=== PATIENT | female | born 1975 | race Hispanic/Latino ===

== ENCOUNTER 2021-02-25 13:58 | Emergency (ER) | payer OTHER ==
[2021-02-25] MEDS ORDERED: LIDOCAINE-MPF (1%) 10 MG/1 ML VIAL 5 ML INFILTRATI ONE (14:21)
[2021-02-25] MEDS: hydrOXYzine HCL 25 MG TAB PO ONE (14:47)
--- NOTE | 2021-02-25 15:29 | Emergency Department Report ---
- General Chief complaint: Skin/Abscess/Foreign Body Stated complaint: ABSCESS Time Seen by Provider: 02/25/21 14:10 Source: patient Mode of arrival: Ambulatory Limitations: No Limitations - History of Present Illness Initial comments: Patient is a 45-year-old female presents emergency room with complaints of a abscess to the right axilla that exacerbated 2 weeks ago. She states that she has had a knot in this area for approximately 10 years. He states over the last 2 weeks it began to swell and become red. He states that it has become painful. Patient states that she has been on Augmentin but does not appear to be improving. She denies any fever, drainage, chills, vomiting. Past medical history of COPD, anxiety/panic disorder, hypertension. She has an allergy to te tracyclines, erythromycin, IV contrast dye. - Related Data Previous Rx's Medication Instructions Recorded Last Taken Type Clindamycin [Clindamycin CAP] 300 mg PO TID 7 Days #21 capsule 02/25/21 Unknown Rx Naproxen 375 mg PO BID PRN #14 tablet 02/25/21 Unknown Rx Allergies Allergy/AdvReac Type Severity Reaction Status Date / Time erythromycin base Allergy Unknown Verified 02/25/21 14:01 Iodinated Contrast Media Allergy Unknown Verified 02/25/21 14:01 tetracycline Allergy Unknown Verified 02/25/21 14:01 Abscess Boil HPI - HPI Chief Complaint: Skin/Abscess/Foreign Body Stated Complaint: ABSCESS Time Seen by Provider: 02/25/21 14:10 Home Medications: Previous Rx's Medication Instructions Recorded Last Taken Type Clindamycin [Clindamycin CAP] 300 mg PO TID 7 Days #21 capsule 02/25/21 Unknown Rx Naproxen 375 mg PO BID PRN #14 tablet 02/25/21 Unknown Rx Allergies/Adverse Reactions: Allergies Allergy/AdvReac Type Severity Reaction Status Date / Time erythromycin base Allergy Unknown Verified 02/25/21 14:01 Iodinated Contrast Media Allergy Unknown Verified 02/25/21 14:01 tetracycline Allergy Unknown Verified 02/25/21 14:01 ED Review of Systems ROS: Stated complaint: ABSCESS Other details as noted in HPI Comment: All other systems reviewed and negative ED Past Medical Hx - Past Medical History Previous Medical History?: Yes Hx Hypertension: Yes Hx Psychiatric Treatment: Yes (panic disorder) Hx COPD: Yes - Surgical History Past Surgical History?: No - Medications Home Medications: Home Medications Medication Instructions Recorded Confirmed Last Taken Type Clindamycin [Clindamycin CAP] 300 mg PO TID 7 Days #21 capsule 02/25/21 Unknown Rx Naproxen 375 mg PO BID PRN #14 tablet 02/25/21 Unknown Rx ED Physical Exam - General Limitations: No Limitations General appearance: alert, in no apparent distress - Head Head exam: Present: atraumatic, normocephalic - Eye Eye exam: Present: normal appearance - ENT ENT exam: Present: mucous membranes moist - Neurological Exam Neurological exam: Present: alert, oriented X3 - Psychiatric Psychiatric exam: Present: normal affect, normal mood - Skin Skin exam: Present: warm, dry, other (2 cm area of induration and central fluctuance present to the right axilla, no drainage, no opening, no necrosis, no significant surrounding erythema ) ED Course Vital Signs 02/25/21 02/25/21 14:02 16:41 Temperature 99.3 F 98.4 F Pulse Rate 96 H 87 Respiratory 16 16 Rate Blood Pressure 116/71 Blood Pressure 109/64 [Left] O2 Sat by Pulse 96 97 Oximetry - I & D Right Arm Type of Procedure: Simple Site: right axilla Blade Size: 11 I & D Procedure: betadine prep, sterile drapes applied, sterile dressing applied Progress: Verbal consent obtained by patient Skin prepped with Betadine, sterile drapes applied, 2 cc of 1% lidocaine without epinephrine used anesthetic, 11 blade used to make a 1 cm incision, purulent and sebaceous-like material expressed, irrigated with saline, patient tolerated well, no complications, bleeding controlled, sterile dressing applied ED Medical Decision Making - Medical Decision Making Patient is a 45-year-old female presents emergency room with complaints of a abscess to the right axilla that exacerbated 2 weeks ago. She states that she has had a knot in this area for approximately 10 years. He states over the last 2 weeks it began to swell and become red. He states that it has become painful. Patient states that she has been on Augmentin but does not appear to be improving. She denies any fever, drainage, chills, vomiting. Past medical history of COPD, anxiety/panic disorder, hypertension. She has an allergy to tetracyclines, erythromycin, IV contrast dye. Vitals are normal. On exam:2 cm area of induration and central fluctuance present to the right axilla, no drainage, no opening, no necrosis, no significant surrounding erythema. I&D performed per procedure note without any complications. Patient given prescription for medication. Advised patient Please take medication as prescr ibed. Please do warm compresses 2-3 times a day. Please keep area clean and dry. Please change the dressing twice a day. May wash with antibacterial soap and water and pat dry. No hot tub or pool. Follow-up with a advertising inserter. Follow-up with your primary care doctor. Return to emergency room for any new or worsening symptoms. Critical care attestation.: If time is entered above; I have spent that time in minutes in the direct care of this critically ill patient, excluding procedure time. ED Disposition Clinical Impression: Abscess of right axilla Disposition: HOME / SELF CARE / HOMELESS Is pt being admited?: No Does the pt Need Aspirin: No Condition: Stable Instructions: Incision and Drainage Additional Instructions: Please take medication as prescribed. Please do warm compresses 2-3 times a day. Please keep area clean and dry. Please change the dressing twice a day. May wash with antibacterial soap and water and pat dry. No hot tub or pool. Fo llow-up with a advertising inserter. Follow-up with your primary care doctor. Return to emergency room for any new or worsening symptoms. [facility] Address: [address] [place] [id number] [address] Mata Isaac Address: [address] [place] [address] [id number], [place] [address] Prescriptions: Clindamycin [Clindamycin CAP] 300 mg PO TID 7 Days #21 capsule Naproxen 375 mg PO BID PRN #14 tablet PRN Reason: pain Referrals: [facility] [Provider Group] - 3-5 Days Time of Disposition: 15:30 Print Language: BELARUSIAN
[2021-02-25 16:42] VITALS: BP 116/71
== END 2021-02-25 16:42 | disposition home or self-care (01) ==
LOC: ED 13:58
DX: L02.411 Cutaneous abscess of right axilla (principal); I10 Essential (primary) hypertension; Z88.1 Allergy status to other antibiotic agents; Z91.041 Radiographic dye allergy status
CPT/HCPCS: 99282

== ENCOUNTER 2021-02-28 00:05 | Observation (INO) | payer OTHER ==
[2021-02-28] MEDS ORDERED: ONDANSETRON 4 MG/2 ML INJ IV ONE (01:00)
[2021-02-28] MEDS ORDERED: SODIUM CHLORIDE 0.9% 1000 ML 1,000 ML IV ONE (01:15)
[2021-02-28] MEDS ORDERED: levETIRAcetam 1000 MG/NS 0.75% 1,000 MG/100 ML BAG IV ONE (01:15)
--- NOTE | 2021-02-28 01:17 | Emergency Department Report ---
ED Seizure HPI - General Chief Complaint: Seizure Stated Complaint: SEIZURE Time Seen by Provider: 02/28/21 01:13 Source: patient, EMS Mode of arrival: Stretcher Limitations: No Limitations - History of Present Illness Initial Comments: Patient is a 45-year-old female that presents emergency room for new onset seizure. Patient states for the last 3 to 4 days she has been feeling lightheaded and dizzy and today she was walking around and became nauseous and more lightheaded. The next thing she knows she woke up inside of an ambulance. She was told by EMS that she had a seizure. Patient does not remember having a seizure. Patient seizure was witnessed by the staff of [facility]. [facility] Patient states she has been clean for 3 weeks. Patient denies any pain. Patient states she is never had a seizure. Patient states she is never had alcohol withdrawal seizure. Patient denies recent travel. Patient denies recent international travel. Patient denies exposure to the novel coronavirus. Patient denies sick contacts. Patient denies fever and chills. Patient denies cough. Patient denies diarrhea. Patient denies coming in contact with anybody with symptoms of the novel coronavirus. MD Complaint: seizure -: Sudden Description of Episode: loss of consciousness, tonic-clonic movement, bladder incontinence -: second(s) Witnessed:: Yes Trauma: No Seizure History: none Place: other Possible Precipitating Event: none Associated Symptoms: malaise, weakness Treatments Prior to Arrival: none - Related Data Previous Rx's Medication Instructions Recorded Last Taken Type Clindamycin [Clindamycin CAP] 300 mg PO TID 7 Days #21 capsule 02/25/21 Unknown Rx Naproxen 375 mg PO BID PRN #14 tablet 02/25/21 Unknown Rx Allergies Allergy/AdvReac Type Severity Reaction Status Date / Time erythromycin base Allergy Unknown Verified 02/25/21 14:01 Iodinated Contrast Media Allergy Unknown Verified 02/25/21 14:01 tetracycline Allergy Unknown Verified 02/25/21 14:01 ED Review of Systems ROS: Stated complaint: SEIZURE Other details as noted in HPI Constitutional: malaise. denies: chills, fever Eyes: denies: eye pain, eye discharge, vision change ENT: denies: ear pain, throat pain Respiratory: denies: cough, shortness of breath, wheezing Cardiovascular: denies: chest pain, palpitations Endocrine: no symptoms reported Gastrointestinal: denies: abdominal pain, nausea, diarrhea Genitourinary: denies: urgency, dysuria, discharge Musculoskeletal: denies: back pain, joint swelling, arthralgia Skin: denies: rash, lesions Neurological: as per HPI, weakness. denies: headache, paresthesias Psychiatric: denies: anxiety, depression Hematological/Lymphatic: denies: easy bleeding, easy bruising ED Past Medical Hx - Past Medical History Previous Medical History?: Yes Hx Hypertension: Yes Hx Seizures: No Hx Psychiatric Treatment: Yes (panic disorder) Hx COPD: Yes - Surgical History Past Surgical History?: No - Family History Family history: no significant - Social History Smoking Status: Current Every Day Smoker Substance Use Type: None - Medications Home Medications: Home Medications Medication Instructions Recorded Confirmed Last Taken Type Clindamycin [Clindamycin CAP] 300 mg PO TID 7 Days #21 capsule 02/25/21 Unknown Rx Naproxen 375 mg PO BID PRN #14 tablet 02/25/21 Unknown Rx ED Physical Exam - General Limitations: No Limitations General appearance: alert, in no apparent distress - Head Head exam: Present: atraumatic, normocephalic - Eye Eye exam: Present: normal appearance, PERRL Pupils: Present: normal accommodation - ENT ENT exam: Present: mucous membranes dry - Neck Neck exam: Present: normal inspection - Respiratory Respiratory exam: Present: normal lung sounds bilaterally. Absent: respiratory distress, wheezes, rales - Cardiovascular Cardiovascular Exam: Present: regular rate, normal rhythm. Absent: systolic murmur, diastolic murmur, rubs, gallop - GI/Abdominal GI/Abdominal exam: Present: soft, normal bowel sounds - Extremities Exam Extremities exam: Present: normal inspection - Back Exam Back exam: Present: normal inspection - Neurological Exam Neurological exam: Present: alert, oriented X3 - Psychiatric Psychiatric exam: Present: normal affect, normal mood - Skin Skin exam: Present: warm, dry, intact, normal color. Absent: rash ED Course Vital Signs 02/28/21 02/28/21 02/28/21 00:20 01:02 01:15 Temperature 98.8 F Pulse Rate 124 H 106 H 101 H Respiratory 20 14 15 Rate Blood Pressure 139/81 Blood Pressure 143/74 [Left] O2 Sat by Pulse 94 100 99 Oximetry 02/28/21 02/28/21 01:18 01:31 Temperature Pulse Rate 104 H 101 H Respiratory 122 H 12 Rate Blood Pressure 102/71 Blood Pressure 102/71 [Left] O2 Sat by Pulse 99 100 Oximetry - Reevaluation(s) Reevaluation #1: I discussed all results with patient. I discussed plan of care with patient. Patient agrees with plan of care and admission. Patient to be admitted to the hospitalist service. 02/28/21 03:26 - Consultations Consultation #1: Hospitalist consulted for admission. Hospitalist to admit patient. 02/28/21 03:26 ED Medical Decision Making - Lab Data Result diagrams: 02/28/21 01:27 02/28/21 01:27 - Radiology Data Radiology results: report reviewed CT HEAD WITHOUT CONTRAST INDICATION / CLINICAL INFORMATION: Seizure. TECHNIQUE: All CT scans at this location are performed using CT dose reduction for ALARA by means of automated exposure control. COMPARISON: None available. FINDINGS: HEMORRHAGE: None. EXTRA-AXIAL SPACES: Normal in size and morphology for the patient's age. VENTRICULAR SYSTEM: Normal in size and morphology for the patient's age. CEREBRAL PARENCHYMA: No significant abnormality. No acute territorial infarct. MIDLINE SHIFT / HERNIATION: None. CEREBELLUM / BRAINSTEM: No significant abnormality. ORBITS: Normal as visualized SOFT TISSUES: No significant abnormality. SKULL: No significant abnormality. PARANASAL SINUSES / MASTOID AIR CELLS: Normal as visualized ADDITIONAL FINDINGS: None. IMPRESSION: 1. No acute intracranial abnormality. - Medical Decision Making Patient is a 45-year-old female that presents emergency room with new onset seizure. Patient was at a local psychiatry facility for alcohol rehab. Patient has not had alcohol for 3 weeks. Patient had a 34 few days and went into a seizure. The seizure was witnessed by the facility staff. Patient was brought in by EMS. Patient denies any further seizure activity while in the ER. Patient after evaluation was given fluids, Zofran and Keppra. Patient had labs done which were essentially unremarkable. Patient head CT which was negative for acute finding. Patient admitted to the hospital service for further ev aluation treatment and work-up for new onset seizures. Critical care time documented due to the multiple reassessments, prolonged time at the bedside, interpretation of diagnostics and labs. - Differential Diagnosis New onset seizure, dizziness and lightheadedness, seizure activity Critical Care Time: Yes Critical care time in (mins) excluding proc time.: 35 Critical care attestation.: If time is entered above; I have spent that time in minutes in the direct care of this critically ill patient, excluding procedure time. Critical Care Time: 35 minutes ED Disposition Clinical Impression: Dizziness, New onset seizure, Seizure-like activity Disposition: ADMITTED INPATIENT Is pt being admited?: Yes Does the pt Need Aspirin: No Condition: Critical Time of Disposition: 03:26
[2021-02-28] MEDS ORDERED: ONDANSETRON 4 MG/2 ML INJ ONE (01:26)
[2021-02-28 02:01] LABS: Hematocrit 35.5 % (30.3-42.9); Hemoglobin 11.3 gm/dl (10.1-14.3); Mean Corpuscular HGB Conc 32 % (30-34); Mean Corpuscular Volume 88 fl (79-97); Platelet Count 397 K/mm3 (140-440); Red Blood Count 4.02 M/mm3 (3.65-5.03)
[2021-02-28 02:06] LABS: Alanine Aminotransferase 19 units/L (7-56); Albumin 4.3 g/dL (3.9-5); BUN/Creatinine Ratio 19; Blood Urea Nitrogen 17 mg/dL (7-17); Calcium 9.3 mg/dL (8.4-10.2); Hemolysis Index 14
[2021-02-28 02:52] LABS: RBC Morphology Normal; Total Cells Counted 100
--- NOTE | 2021-02-28 03:17 | Cat Scan Report ---
CT HEAD WITHOUT CONTRAST INDICATION / CLINICAL INFORMATION: Seizure. TECHNIQUE: All CT scans at this location are performed using CT dose reduction for ALARA by means of automated exposure control. COMPARISON: None available. FINDINGS: HEMORRHAGE: None. EXTRA-AXIAL SPACES: Normal in size and morphology for the patient's age. VENTRICULAR SYSTEM: Normal in size and morphology for the patient's age. CEREBRAL PARENCHYMA: No significant abnormality. No acute territorial infarct. MIDLINE SHIFT / HERNIATION: None. CEREBELLUM / BRAINSTEM: No significant abnormality. ORBITS: Normal as visualized SOFT TISSUES: No significant abnormality. SKULL: No significant abnormality. PARANASAL SINUSES / MASTOID AIR CELLS: Normal as visualized ADDITIONAL FINDINGS: None. IMPRESSION: 1. No acute intracranial abnormality. Signer Name: Te Chang DO Signed: 02/28/2021 3:13 AM Workstation Name: [id number]
[2021-02-28 04:42] LABS: Amphetamine Screen,Urine Negative; Benzodiazepines Screen,Urine Negative; Cannabinoid Screen,Urine Negative; Cocaine Screen,Urine Negative; Methadone Screen,Urine Negative; Opiate Screen,Urine Negative
[2021-02-28 04:43] LABS: Bilirubin,Urine NEG (Negative); Blood,Urine NEG (Negative); Color,Urine Colorless (Yellow); Protein,Urine <15 mg/dL mg/dL (Negative); RBC,Urine < 1.0 /HPF (0.0-6.0); Urobilinogen,Urine < 2.0 mg/dL (<2.0); WBC,Urine < 1.0 /HPF (0.0-6.0)
[2021-02-28] MEDS ORDERED: ALBUTEROL 2.5 MG/3 ML NEBU IH PRN (06:16)
[2021-02-28] MEDS ORDERED: ONDANSETRON 4 MG/2 ML INJ IV PRN (06:16)
--- NOTE | 2021-02-28 06:23 | History and Physical Report ---
History of Present Illness Date of examination: 02/28/21 Date of admission: 02/28/21 03:26 Chief complaint: Seizure History of present illness: 45-year-old female with past medical history of hypertension, panic disorder, COPD was brought to the emergency room because of new onset seizure. Patient states for the last 3 to 4 days she has been feeling lightheaded and dizzy and today she was walking around and became nauseous and more lightheaded. The next thing she knows she woke up inside of an ambulance. She was told by EMS that she had a seizure. Patient does not remember having a seizure. Patient seizure was witnessed by the staff of [facility]. Patient is currently a patient [facility] for alcohol rehab. Patient states she has been clean for 3 weeks. Patient denies any pain. Patient states she is never had a seizure. Patient states she is never had alcohol withdrawal seizure. Patient head CT which was negative for acute finding. Patient admitted to the hospital service for further evaluation treatment and work-up for new onset seizures. Past History Past Medical History: hypertension, other (Panic disorder, alcohol abuse) Medications and Allergies Allergies Allergy/AdvReac Type Severity Reaction Status Date / Time erythromycin base Allergy Unknown Verified 02/25/21 14:01 Iodinated Contrast Media Allergy Unknown Verified 02/25/21 14:01 tetracycline Allergy Unknown Verified 02/25/21 14:01 Home Medications Medication Instructions Recorded Confirmed Last Taken Type Clindamycin [Clindamycin CAP] 300 mg PO TID 7 Days #21 capsule 02/25/21 Unknown Rx Naproxen 375 mg PO BID PRN #14 tablet 02/25/21 Unknown Rx Active Meds: Active Medications Acetaminophen (Acetaminophen 325 Mg Tab) 650 mg PO Q4H PRN PRN Reason: Pain MILD(1-3)/Fever >100.5/DASILVA Albuterol (Albuterol 2.5 Mg/3 Ml Nebu) 2.5 mg IH Q4HRT PRN PRN Reason: Shortness Of Breath Albuterol/Ipratropium (Ipratropium/Albuterol Sulfate 3 Ml Ampul.Neb) 1 ampul IH Q6HRT ELSA Famotidine (Famotidine 20 Mg Tab) 20 mg PO BID ELSA Hydromorphone HCl (Hydromorphone 1 Mg/1 Ml Inj) 0.5 mg IV Q3H PRN PRN Reason: Pain , Severe (7-10) Dextrose/Sodium Chloride (D5/0.45ns) 1,000 mls @ 100 mls/hr IV DIRECT ELSA Levetiracetam 500 mg/ Dextrose 105 mls @ 400 mls/hr IV Q12HR ELSA Ondansetron HCl (Ondansetron 4 Mg/2 Ml Inj) 4 mg IV Q8H PRN PRN Reason: Nausea And Vomiting Oxycodone/Acetaminophen (Oxycodone /Acetaminophen 5-325mg Tab) 1 tab PO Q6H PRN PRN Reason: Pain, Moderate (4-6) Sodium Chloride (Sodium Chloride 0.9% 10 Ml Flush Syringe) 10 ml IV BID ELSA Sodium Chloride (Sodium Chloride 0.9% 10 Ml Flush Syringe) 10 ml IV PRN PRN PRN Reason: LINE FLUSH Review of Systems All systems: negative Neurological: seizures Exam - Constitutional Vitals: Temp Pulse Resp BP Pulse Ox 98.8 F 99 H 14 107/58 97 02/28/21 00:20 02/28/21 05:31 02/28/21 05:31 02/28/21 05:31 02/28/21 05:31 General appearance: Present: no acute distress, well-nourished - EENT Eyes: Present: PERRL ENT: hearing intact, clear oral mucosa - Neck Neck: Present: supple, normal ROM - Respiratory Respiratory effort: normal Respiratory: bilateral: CTA - Cardiovascular Heart Sounds: Present: S1 & S2. Absent: rub, click - Extremities Extremities: pulses symmetrical, No edema Peripheral Pulses: within normal limits - Abdominal General gastrointestinal: Present: soft, non-tender, non-distended, normal bowel sounds Female genitourinary: Present: normal - Integumentary Integumentary: Present: clear, warm, dry - Musculoskeletal Musculoskeletal: gait normal, strength equal bilaterally - Psychiatric Psychiatric: appropriate mood/affect, intact judgment & insight - Neurologic Neurologic: CNII-XII intact, moves all extremities Results - Labs CBC & Chem 7: 02/28/21 01:27 02/28/21 01:27 Labs: Laboratory Last Values WBC 14.7 K/mm3 (4.5-11.0) H 02/28/21 01:27 RBC 4.02 M/mm3 (3.65-5.03) 02/28/21 01:27 Hgb 11.3 gm/dl (10.1-14.3) 02/28/21 01:27 Hct 35.5 % (30.3-42.9) 02/28/21 01:27 MCV 88 fl (79-97) 02/28/21 01:27 MCH 28 pg (28-32) 02/28/21 01:27 MCHC 32 % (30-34) 02/28/21 01:27 RDW 16.0 % (13.2-15.2) H 02/28/21 01:27 Plt Count 397 K/mm3 (140-440) 02/28/21 01:27 Add Manual Diff Complete 02/28/21 01:27 Total Counted 100 02/28/21 01:27 Seg Neuts % (Manual) 79.0 % (40.0-70.0) H 02/28/21 01:27 Lymphocytes % (Manual) 11.0 % (13.4-35.0) L 02/28/21 01:27 Monocytes % (Manual) 6.0 % (0.0-7.3) 02/28/21 01:27 Eosinophils % (Manual) 3.0 % (0.0-4.3) 02/28/21 01:27 Basophils % (Manual) 1.0 % (0.0-1.8) 02/28/21 01:27 Nucleated RBC % Not Reportable 02/28/21 01:27 Seg Neutrophils # Man 11.6 K/mm3 (1.8-7.7) H 02/28/21 01:27 Band Neutrophils # 0.0 K/mm3 02/28/21 01:27 Lymphocytes # (Manual) 1.6 K/mm3 (1.2-5.4) 02/28/21 01:27 Abs React Lymphs (Man) 0.0 K/mm3 02/28/21 01:27 Monocytes # (Manual) 0.9 K/mm3 (0.0-0.8) H 02/28/21 01:27 Eosinophils # (Manual) 0.4 K/mm3 (0.0-0.4) 02/28/21 01:27 Basophils # (Manual) 0.1 K/mm3 (0.0-0.1) 02/28/21 01:27 Metamyelocytes # 0.0 K/mm3 02/28/21 01:27 Myelocytes # 0.0 K/mm3 02/28/21 01:27 Promyelocytes # 0.0 K/mm3 02/28/21 01:27 Blast Cells # 0.0 K/mm3 02/28/21 01:27 WBC Morphology Not Reportable 02/28/21 01:27 Hypersegmented Neuts Not Reportable 02/28/21 01:27 Hyposegmented Neuts Not Reportable 02/28/21 01:27 Hypogranular Neuts Not Reportable 02/28/21 01:27 Smudge Cells Not Reportable 02/28/21 01:27 Toxic Granulation Not Reportable 02/28/21 01:27 Toxic Vacuolation Not Reportable 02/28/21 01:27 Dohle Bodies Not Reportable 02/28/21 01:27 Pelger-Huet Anomaly Not Reportable 02/28/21 01:27 Jermaine Rods Not Reportable 02/28/21 01:27 Platelet Estimate Not Reportable 02/28/21 01:27 Clumped Platelets Not Reportable 02/28/21 01:27 Plt Clumps, EDTA Not Reportable 02/28/21 01:27 Large Platelets Not Reportable 02/28/21 01:27 Giant Platelets Not Reportable 02/28/21 01:27 Platelet Satelliting Not Reportable 02/28/21 01:27 Plt Morphology Comment Not Reportable 02/28/21 01:27 RBC Morphology Normal 02/28/21 01:27 Dimorphic RBCs Not Reportable 02/28/21 01:27 Polychromasia Not Reportable 02/28/21 01:27 Hypochromasia Not Reportable 02/28/21 01:27 Poikilocytosis Not Reportable 02/28/21 01:27 Anisocytosis Not Reportable 02/28/21 01:27 Microcytosis Not Reportable 02/28/21 01:27 Macrocytosis Not Reportable 02/28/21 01:27 Spherocytes Not Reportable 02/28/21 01:27 Pappenheimer Bodies Not Reportable 02/28/21 01:27 Sickle Cells Not Reportable 02/28/21 01:27 Target Cells Not Reportable 02/28/21 01:27 Tear Drop Cells Not Reportable 02/28/21 01:27 Ovalocytes Not Reportable 02/28/21 01:27 Helmet Cells Not Reportable 02/28/21 01:27 [place] Bodies Not Reportable 02/28/21 01:27 [place] Rings Not Reportable 02/28/21 01:27 [place] Cells Not Reportable 02/28/21 01:27 Bite Cells Not Reportable 02/28/21 01:27 Crenated Cell Not Reportable 02/28/21 01:27 Elliptocytes Not Reportable 02/28/21 01:27 Acanthocytes (Spur) Not Reportable 02/28/21 01:27 Rouleaux Not Reportable 02/28/21 01:27 Hemoglobin C Crystals Not Reportable 02/28/21 01:27 Schistocytes Not Reportable 02/28/21 01:27 Malaria parasites Not Reportable 02/28/21 01:27 Dex Bodies Not Reportable 02/28/21 01:27 Hem Pathologist Commnt No 02/28/21 01:27 Sodium 138 mmol/L (137-145) 02/28/21 01:27 Potassium 4.4 mmol/L (3.6-5.0) 02/28/21 01:27 Chloride 100.8 mmol/L (98-107) 02/28/21 01:27 Carbon Dioxide 23 mmol/L (22-30) 02/28/21 01:27 Anion Gap 19 mmol/L 02/28/21 01:27 BUN 17 mg/dL (7-17) 02/28/21 01:27 Creatinine 0.9 mg/dL (0.6-1.2) 02/28/21 01:27 Estimated GFR > 60 ml/min 02/28/21 01:27 BUN/Creatinine Ratio 19 % 02/28/21 01:27 Glucose 150 mg/dL (65-100) H 02/28/21 01:27 Calcium 9.3 mg/dL (8.4-10.2) 02/28/21 01:27 Total Bilirubin < 0.20 mg/dL (0.1-1.2) 02/28/21 01:27 AST 21 units/L (5-40) 02/28/21 01:27 ALT 19 units/L (7-56) 02/28/21 01:27 Alkaline Phosphatase 89 units/L (35-129) 02/28/21 01:27 Total Protein 7.1 g/dL (6.3-8.2) 02/28/21 01:27 Albumin 4.3 g/dL (3.9-5) 02/28/21 01:27 Albumin/Globulin Ratio 1.5 % 02/28/21 01:27 Urine Color Colorless (Yellow) 02/28/21 04:25 Urine Turbidity Clear (Clear) 02/28/21 04:25 Urine pH 6.0 (5.0-7.0) 02/28/21 04:25 Ur Specific [place] 1.003 (1.003-1.030) 02/28/21 04:25 Urine Protein <15 mg/dl mg/dL (Negative) 02/28/21 04:25 Urine Glucose (UA) Neg mg/dL (Negative) 02/28/21 04:25 Urine Ketones Neg mg/dL (Negative) 02/28/21 04:25 Urine Blood Neg (Negative) 02/28/21 04:25 Urine Nitrite Neg (Negative) 02/28/21 04:25 Urine Bilirubin Neg (Negative) 02/28/21 04:25 Urine Urobilinogen < 2.0 mg/dL (<2.0) 02/28/21 04:25 Ur Leukocyte Esterase Neg (Negative) 02/28/21 04:25 Urine WBC (Auto) < 1.0 /HPF (0.0-6.0) 02/28/21 04:25 Urine RBC (Auto) < 1.0 /HPF (0.0-6.0) 02/28/21 04:25 U Epithel Cells (Auto) < 1.0 /HPF (0-13.0) 02/28/21 04:25 Urine Opiates Screen Negative 02/28/21 04:25 Urine Methadone Screen Negative 02/28/21 04:25 Ur Barbiturates Screen Negative 02/28/21 04:25 Ur Phencyclidine Scrn Negative 02/28/21 04:25 Ur Amphetamines Screen Negative 02/28/21 04:25 U Benzodiazepines Scrn Negative 02/28/21 04:25 Urine Cocaine Screen Negative 02/28/21 04:25 U Marijuana (THC) Screen Negative 02/28/21 04:25 Drugs of Abuse Note Disclamer 02/28/21 04:25 Plasma/Serum Alcohol < 0.01 % (0-0.07) 02/28/21 01:27 - Imaging and Cardiology CT Scan - head: report reviewed Assessment and Plan VTE prophylaxis?: Mechanical Plan of care discussed with patient/family: Yes - Patient Problems (1) New onset seizure Current Visit: Yes Status: Acute Plan to address problem: Admit the patient to the medical telemetry. Put on seizure precaution. Keppra 500 mg IV every 12 hours. We order EEG. Will consult neurology for further evaluation. Pain strength counseled regarding quit drinking (2) Hypertension Current Visit: Yes Status: Acute Plan to address problem: Hydralazine 10 mg IV every 6 hours as needed. We continue the home medication. We will monitor the blood pressure closely (3) Alcohol abuse Current Visit: Yes Status: Acute Plan to address problem: Patient has history of alcohol abuse . Patient counseled regarding quit drinking. Put the patient on multivitamin 1 tablet p.o. daily (4) DVT prophylaxis Current Visit: Yes Status: Acute Plan to address problem: SCD for DVT prophylaxis. Pepcid 20 mg p.o. twice daily for GI prophylaxis. Patient is a full code
[2021-02-28] MEDS: ACETAMINOPHEN 325 MG TAB PO PRN (07:44)
--- NOTE | 2021-02-28 07:52 | Consultation ---
History of Present Illness Consult date: 02/28/21 Reason for Consult: New onst seizure,Hx of alcoholism History of present illness: Seizure History of present illness: 45-year-old female with past medical history of hypertension, panic disorder, COPD was brought to the emergency room because of new onset seizure. Patient states for the last 3 to 4 days she has been feeling lightheaded and dizzy and today she was walking around and became nauseous and more lightheaded. The next thing she knows she woke up inside of an ambulance. She was told by EMS that she had a seizure. Patient does not remember having a seizure. Patient seizure was witnessed by the staff of [facility]. Patient is currently a patient [facility] for alcohol rehab. Patient states she has been clean for 3 weeks. Patient denies any pain. Patient states she is never had a seizure. Patient states she is never had alcohol withdrawal seizure. Patient head CT which was negative for acute finding. UDS is unremarkable Patient admitted to the hospital service for further evaluation treatment and work-up for new onset seizures. According to pt. she never had seizure in her life she is anxious and requested some thing for anxiety she is slightly sleepy she admitted drinking at least 5-6 beers daily in addition to liquir almost daily she is admitted to alcohol rehab. 3 weeks back she smokes Marijuana , no other recreational drugs Past History Past Medical History: hypertension, other (Panic disorder, alcohol abuse) Medications and Allergies Allergies Allergy/AdvReac Type Severity Reaction Status Date / Time erythromycin base Allergy Unknown Verified 02/25/21 14:01 Iodinated Contrast Media Allergy Unknown Verified 02/25/21 14:01 tetracycline Allergy Unknown Verified 02/25/21 14:01 Home Medications Medication Instructions Recorded Confirmed Last Taken Type Clindamycin [Clindamycin CAP] 300 mg PO TID 7 Days #21 capsule 02/25/21 Unknown Rx Naproxen 375 mg PO BID PRN #14 tablet 02/25/21 Unknown Rx Active Meds: Active Medications Acetaminophen (Acetaminophen 325 Mg Tab) 650 mg PO Q4H PRN PRN Reason: Pain MILD(1-3)/Fever >100.5/DASILVA Albuterol (Albuterol 2.5 Mg/3 Ml Nebu) 2.5 mg IH Q4HRT PRN PRN Reason: Shortness Of Breath Albuterol/Ipratropium (Ipratropium/Albuterol Sulfate 3 Ml Ampul.Neb) 1 ampul IH Q6HRT ELSA Famotidine (Famotidine 20 Mg Tab) 20 mg PO BID ELSA Hydromorphone HCl (Hydromorphone 1 Mg/1 Ml Inj) 0.5 mg IV Q3H PRN PRN Reason: Pain , Severe (7-10) Dextrose/Sodium Chloride (D5/0.45ns) 1,000 mls @ 100 mls/hr IV DIRECT ELSA Levetiracetam 500 mg/ Dextrose 105 mls @ 400 mls/hr IV Q12HR ELSA Ondansetron HCl (Ondansetron 4 Mg/2 Ml Inj) 4 mg IV Q8H PRN PRN Reason: Nausea And Vomiting Oxycodone/Acetaminophen (Oxycodone /Acetaminophen 5-325mg Tab) 1 tab PO Q6H PRN PRN Reason: Pain, Moderate (4-6) Sodium Chloride (Sodium Chloride 0.9% 10 Ml Flush Syringe) 10 ml IV BID ELSA Sodium Chloride (Sodium Chloride 0.9% 10 Ml Flush Syringe) 10 ml IV PRN PRN PRN Reason: LINE FLUSH Review of Systems All systems: negative Neurological: seizures Past History Past Medical History: hypertension, other (Panic disorder, alcohol abuse) Medications and Allergies Allergies Allergy/AdvReac Type Severity Reaction Status Date / Time erythromycin base Allergy Unknown Verified 02/25/21 14:01 Iodinated Contrast Media Allergy Unknown Verified 02/25/21 14:01 tetracycline Allergy Unknown Verified 02/25/21 14:01 Home Medications Medication Instructions Recorded Confirmed Last Taken Type Clindamycin [Clindamycin CAP] 300 mg PO TID 7 Days #21 capsule 02/25/21 Unknown Rx Naproxen 375 mg PO BID PRN #14 tablet 02/25/21 Unknown Rx Active Meds: Active Medications Acetaminophen (Acetaminophen 325 Mg Tab) 650 mg PO Q4H PRN PRN Reason: Pain MILD(1-3)/Fever >100.5/DASILVA Albuterol (Albuterol 2.5 Mg/3 Ml Nebu) 2.5 mg IH Q4HRT PRN PRN Reason: Shortness Of Breath Albuterol/Ipratropium (Ipratropium/Albuterol Sulfate 3 Ml Ampul.Neb) 1 ampul IH Q6HRT ELSA Famotidine (Famotidine 20 Mg Tab) 20 mg PO BID ELSA Hydromorphone HCl (Hydromorphone 1 Mg/1 Ml Inj) 0.5 mg IV Q3H PRN PRN Reason: Pain , Severe (7-10) Dextrose/Sodium Chloride (D5/0.45ns) 1,000 mls @ 100 mls/hr IV DIRECT ELSA Levetiracetam 500 mg/ Dextrose 105 mls @ 400 mls/hr IV Q12HR ELSA Ondansetron HCl (Ondansetron 4 Mg/2 Ml Inj) 4 mg IV Q8H PRN PRN Reason: Nausea And Vomiting Oxycodone/Acetaminophen (Oxycodone /Acetaminophen 5-325mg Tab) 1 tab PO Q6H PRN PRN Reason: Pain, Moderate (4-6) Sodium Chloride (Sodium Chloride 0.9% 10 Ml Flush Syringe) 10 ml IV BID ELSA Sodium Chloride (Sodium Chloride 0.9% 10 Ml Flush Syringe) 10 ml IV PRN PRN PRN Reason: LINE FLUSH Physical Examination - Vital Signs Vital Signs: Vital Signs Temp Pulse Resp BP Pulse Ox 98.8 F 124 H 20 143/74 94 02/28/21 00:20 02/28/21 00:20 02/28/21 00:20 02/28/21 00:20 02/28/21 00:20 - Constitutional General appearance: comfortable - EENT EENT: Present: PERRL, mucous membranes moist - Respiratory Respiratory: Present: chest non-tender, lungs clear, rhonchi - Cardiovascular Cardiovascular: Present: regular rate, normal S1, normal S2 Extremities: Present: no peripheral edema bilatateraly, no clubbing, cyanosis - Gastrointestinal Gastrointestinal: Present: normoactive bowel sounds, absent bowel sounds - Integumentary Integumentary: Present: normal - Neurologic Cranial nerve examination: PERRL, EOMI, intact Speech examination: intact Sensorimotor examination: intact Detailed motor examination: grossly full strength in Results - Laboratory Findings CBC and BMP: 02/28/21 01:27 02/28/21 01:27 Abnormal Lab Findings: Abnormal Labs 02/28/21 02/28/21 01:27 01:27 WBC 14.7 H RDW 16.0 H Seg Neuts % (Manual) 79.0 H Lymphocytes % (Manual) 11.0 L Seg Neutrophils # Man 11.6 H Monocytes # (Manual) 0.9 H Glucose 150 H Assessment and Plan Assessment and Plan VTE prophylaxis?: Mechanical Plan of care discussed with patient/family: Yes - Patient Problems # New onset seizure [facility] -Hx of excessive alcohol intake been sober for 3 weeks -No DT sign -Underlying anxiety -Ct brain is unremarkable -EEG is pending -Thiamine Iv 250 mg daily X 3 days -Seizure precaution -Doubt need for anti-epileptic medication -Brain MRI with Gd . -Correct electrolytes abn. # Underlying anxiety - Suggest xanax 0.5 mg bid - # Hypertension# Underlying anxiety -Hydralazine 10 mg IV every 6 hours as needed. We continue the home medication. We will monitor the blood pressure closely # Alcohol abuse -Patient has history of alcohol abuse . -Patient counseled regarding quit drinking. - Put the patient on multivitamin 1 tablet p.o. daily # DVT prophylaxis -SCD for DVT prophylaxis. Pepcid 20 mg p.o. twice daily for GI prophylaxis. Patient is a full code
[2021-02-28] MEDS: FAMOTIDINE 20 MG TAB PO SCH ×2 (09:30→23:11)
[2021-02-28] MEDS: D5W/0.45% NACL 1,000 ML IV SCH ×2 (09:31→23:06)
[2021-02-28] MEDS: levETIRAcetam 500 MG in DEXTROSE 5% IN WATER 100 ML IV SCH ×2 (09:31→23:12)
[2021-02-28 10:08] LABS: Basophils # (Auto) 0.1 K/mm3 (0.0-0.1); Eosinophils # (Auto) 0.2 K/mm3 (0.0-0.4); Eosinophils % (Auto) 1.1 % (0.0-4.3); Monocytes # (Auto) 0.7 K/mm3 (0.0-0.8); Monocytes % (Auto) 5.1 % (0.0-7.3)
--- NOTE | 2021-02-28 10:41 | XRay Report ---
XR foot 3+V LT INDICATION / CLINICAL INFORMATION: foot injury. COMPARISON: None available. FINDINGS: BONES/JOINT(S): No acute fracture or subluxation. Old healed fracture of the fifth proximal phalanx. SOFT TISSUES: No significant abnormality. ADDITIONAL FINDINGS: None. Signer Name: South Jacobson MD Signed: 02/28/2021 10:37 AM Workstation Name: [id number]
[2021-02-28] MEDS: oxyCODONE /ACETAMINOPHEN 5-325MG TAB PO PRN ×2 (14:42→23:19)
[2021-02-28] MEDS: ALPRAZolam 0.5 MG TAB PO SCH ×2 (14:43→23:11)
[2021-02-28] MEDS: IPRATROPIUM/ALBUTEROL SULFATE 3 ML AMPUL.NEB IH SCH ×2 (14:53→20:34)
--- NOTE | 2021-02-28 15:20 | Magnetic Resonance Report ---
MR brain wo/w con INDICATION / CLINICAL INFORMATION: 45 years Female; Seizure disorder. TECHNIQUE: Multiplanar, multisequence MR images of the brain were obtained. COMPARISON: None available. FINDINGS: BRAIN / INTRACRANIAL CONTENTS: On the FLAIR sequences I, there are a few scattered small hyperintense foci involving cerebral white matter most consistent with mild microvascular angiopathy at. The diff usion imaging reveals no evidence of acute infarction. The ventricular system is appropriate in size and configuration. No extra-axial fluid collections or significant mass effect is identified. No intr acranial enhancing lesions are appreciated. CRANIOCERVICAL JUNCTION: No significant abnormality. VASCULAR FLOW-VOIDS: No significant abnormality. ORBITS: No significant abnormality of visualized orbits. SINUSES / MASTOIDS: No significant abnormality in the visualized paranasal sinuses or mastoid air chuck ls. ADDITIONAL FINDINGS: None. IMPRESSION: 1. There are few scattered a small hyperintense foci involving cerebral white matter indicative of mi crovascular angiopathy as described. The MRI the brain is otherwise unremarkable without evidence of recent infarction or acute intracranial process. Signer Name: Joseph Lima MD Signed: 02/28/2021 3:15 PM Workstation Name: [id number]
--- NOTE | 2021-02-28 18:15 | XRay Report ---
LEFT WRIST 3 VIEWS 1731 INDICATION: pain from fall COMPARISON: None available. FINDINGS: Lateral view is slightly obliqued. No fractures or dislocations are seen. Signer Name: Galindo Penaloza MD Signed: 02/28/2021 6:11 PM Workstation Name: [id number]
--- NOTE | 2021-02-28 18:53 | Event Note ---
Date: 02/28/21 History reviewed and patient examined by me, patient still remains in the ED. 40-year-old female with the PMH of alcohol abuse, chronic anxiety, COPD and hypertension has been in the alcohol rehabsober since 3 weeks. Last alcoholic drink was on 02/08/2021. Patient has no history of seizures. No history of fall alcohol withdrawal seizures either. Patient had a seizure, witnessed at the rehab facility and sent to ED. Started on Keppra. MRI unremarkable except evidence of chronic microangiopathy. Neurology consulted and EEG ordered. Currently no alcohol withdrawal symptoms. She is very somnolent but arousable. Able to give history. She is complaining of pain in left foot where she sustained an abrasion/laceration exposing a tendon on medial aspect of first metatarsal carpal joint. Patient states that she passed out with a seizure and does not know how she suffered injury. On exam, no obvious head injury, pupils normal. Face symmetric. No respiratory distress, muscular, hot regular rhythm, abdomen soft and nontender, extremities no edema. Neuro examsomnolent but is arousable. No focal motor deficit. No tremors. Left footthere is a circular laceration over medial aspect of first left metatarsal plantar joint exquisitely well. Not bleeding. Wound looks clean. Dressings in place. Assessment: New onset witnessed seizure, likely related to alcohol withdrawal No further seizures since arrival in the ED Somnolence likely from Keppra MRI imaging unremarkable Neurology following, EEG pending Syncope and likely fall from a seizure Left foot injury with laceration, no skeletal injuries on x-rays Continue seizure precautions With the patient and the nursing staff
[2021-02-28] MEDS: HYDROmorphone 1 MG/1 ML INJ IV PRN (19:48)
[2021-03-01] MEDS: IPRATROPIUM/ALBUTEROL SULFATE 3 ML AMPUL.NEB IH SCH ×4 (05:08→19:40)
[2021-03-01 05:49] LABS: Hematocrit 33.6 % (30.3-42.9); Hemoglobin 10.9 gm/dl (10.1-14.3); Mean Corpuscular HGB Conc 33 % (30-34); Mean Corpuscular Volume 90 fl (79-97); Platelet Count 368 K/mm3 (140-440); Red Blood Count 3.75 M/mm3 (3.65-5.03); Red Cell Distribution Width 16.2 % (13.2-15.2)
[2021-03-01] MEDS: oxyCODONE /ACETAMINOPHEN 5-325MG TAB PO PRN ×2 (05:49→11:46)
[2021-03-01 06:12] LABS: Alanine Aminotransferase 15 units/L (7-56); Albumin 3.5 g/dL (3.9-5); Blood Urea Nitrogen 8 mg/dL (7-17); Calcium 8.6 mg/dL (8.4-10.2); Hemolysis Index 4
[2021-03-01 06:29] LABS: BUN/Creatinine Ratio 13
[2021-03-01] MEDS: NICOTINE 21 MG/24 HR PATCH TD SCH ×2 (07:56→09:11)
[2021-03-01 09:02] LABS: Band Neutrophils # (Manual) 0.3 K/mm3; RBC Morphology Normal; Total Cells Counted 100
[2021-03-01] MEDS: THIAMINE 250 MG in SODIUM CHLORIDE 0.9% 50 ML IV SCH (09:11)
[2021-03-01] MEDS: FAMOTIDINE 20 MG TAB PO SCH ×2 (09:11→22:26)
[2021-03-01] MEDS: ALPRAZolam 0.5 MG TAB PO SCH (09:12)
[2021-03-01] MEDS: D5W/0.45% NACL 1,000 ML IV SCH (09:12)
[2021-03-01] MEDS: HYDROmorphone 1 MG/1 ML INJ IV PRN (09:14)
[2021-03-01] MEDS: levETIRAcetam 500 MG in DEXTROSE 5% IN WATER 100 ML IV SCH (11:14)
--- NOTE | 2021-03-01 12:07 | Progress Note ---
Assessment and Plan Assessment and Plan VTE prophylaxis?: Mechanical Plan of care discussed with patient/family: Yes - Patient Problems # New onset seizure witnessed in rehabilitation center -Hx of excessive alcohol intake been sober for 3 weeks -No DT sign -Underlying anxiety -Ct brain is unremarkable -EEG is unremarkable -Thiamine Iv 250 mg daily X 3 days -Seizure precaution -Doubt need for anti-epileptic medication --Provoked seizure -pt. is interested in continues on keppra at least for now and follow up with neurology , seizure precaution and no driving , No alcohol -Brain MRI with Gd is unermarkable -Correct electrolytes abn. -check for orthostatic vital sign # Underlying anxiety - Suggest xanax 0.5 mg bid -PCP follow or psychiatry # Hypertension# Underlying anxiety -Hydralazine 10 mg IV every 6 hours as needed. We continue the home medication. We will monitor the blood pressure closely # Alcohol abuse -Patient has history of alcohol abuse . -Patient counseled regarding quit drinking. - Put the patient on multivitamin 1 tablet p.o. daily # DVT prophylaxis -SCD for DVT prophylaxis. Pepcid 20 mg p.o. twice daily for GI prophylaxis. Patient is a full code will sign off Subjective Date of service: 03/01/21 Principal diagnosis: seizure Interval history: doing well complaint of feeling dizzy on standing , no seizure she would like to continues on seizure medication and no driving she is interested in going back to alcohol rehabilitaion MRI and EEG are unremarkable. Objective - Vital Sign Vital Signs - 12hr 03/01/21 03/01/21 03/01/21 00:05 02:15 03:47 Temperature 97.7 F Pulse Rate 76 Pulse Rate [ bilateral] Respiratory 18 Rate Respiratory Rate [bilateral ] Blood Pressure 120/67 130/73 O2 Sat by Pulse 99 99 100 Oximetry 03/01/21 03/01/21 03/01/21 07:46 08:35 08:38 Temperature 98.4 F Pulse Rate 78 Pulse Rate [ 70 bilateral] Respiratory 16 Rate Respiratory 18 Rate [bilateral ] Blood Pressure 131/78 O2 Sat by Pulse 100 100 Oximetry 03/01/21 09:14 Temperature Pulse Rate Pulse Rate [ bilateral] Respiratory 18 Rate Respiratory Rate [bilateral ] Blood Pressure O2 Sat by Pulse Oximetry - General Apperance Constitutional: comfortable - EENT EENT: PERRL, mucous membranes moist - Respiratory Respiratory: chest non-tender, lungs clear, rhonchi - Cardiovascular Cardiovascular: regular rate, normal S1, normal S2 Extremities: no peripheral edema bilat, no clubbing, cyanosis - Gastrointestinal Gastrointestinal: normoactive bowel sounds - Integumentary Integumentary: normal - Neurologic Cranial nerve examination: intact Speech examination: intact Detailed motor examination: grossly full strength in - Laboratory Findings CBC and BMP: 03/01/21 04:20 03/01/21 04:20 Abnormal Lab Findings: Abnormal Labs 02/28/21 02/28/21 03/01/21 01:27 01:27 04:20 WBC 14.7 H RDW 16.0 H 16.2 H Seg Neutrophils % 81.0 H Seg Neuts % (Manual) 79.0 H Lymphocytes % (Manual) 11.0 L Monocytes % (Manual) 10.0 H Eosinophils % (Manual) 5.0 H Seg Neutrophils # 11.6 H Seg Neutrophils # Man 11.6 H Monocytes # (Manual) 0.9 H Glucose 150 H Albumin 03/01/21 04:20 WBC RDW Seg Neutrophils % Seg Neuts % (Manual) Lymphocytes % (Manual) Monocytes % (Manual) Eosinophils % (Manual) Seg Neutrophils # Seg Neutrophils # Man Monocytes # (Manual) Glucose 114 H Albumin 3.5 L
[2021-03-01] MEDS ORDERED: hydrOXYzine HCL 25 MG TAB PO PRN (12:46)
[2021-03-01] MEDS: busPIRone 10 MG TAB PO SCH ×2 (13:16→22:26)
[2021-03-01] MEDS: CITALOPRAM 20 MG TAB PO SCH (13:16)
[2021-03-01] MEDS: GABAPENTIN 100 MG CAP PO SCH ×2 (13:16→22:26)
[2021-03-01] MEDS: KETOROLAC 30 MG/1 ML INJ IV PRN ×2 (16:42→22:25)
--- NOTE | 2021-03-01 17:55 | Progress Note ---
Assessment and Plan Assessment and plan: 40-year-old female with the PMH of alcohol abuse, chronic anxiety, COPD and hypertension has been in the alcohol [facility]habsober since 3 weeks. Last alcoholic drink was on 02/08/2021. Patient has no history of seizures. No history of fall alcohol withdrawal seizures either. Patient had a seizure, witnessed at the rehab facility and sent to ED. Started on Keppra. MRI unremarkable except evidence of chronic microangiopathy. Neurology consulted and EEG ordered. Currently no alcohol withdrawal symptoms. She is very somnolent but arousable. Able to give history. She is complaining of pain in left foot where she sustained an abrasion/laceration exposing a tendon on medial aspect of first metatarsal carpal joint. Patient states that she passed out with a seizure and does not know how she suffered injury. On exam, no obvious head injury, pupils normal. Face symmetric. No respiratory distress, muscular, hot regular rhythm, abdomen soft and nontender, extremities no edema. Neuro examsomnolent but is arousable. No focal motor deficit. No tremors. Left footthere is a circular laceration over medial aspect of first left metatarsal plantar joint exquisitely well. Not bleeding. Wound looks clean. Dressings in place. Assessment: New onset witnessed seizure, likely related to alcohol withdrawal No further seizures witnessed since arrival in the ED Somnolence likely from narcotics, resolved MRI imaging unremarkable Neurology following, EEG pending Syncope and likely fall from a seizure Left foot injury with laceration, no skeletal injuries on x-rays Left wrist swollen and painful but no fracture x-rays Severe anxiety with panic reaction Plan: Ordered Ativan since patient is having panic reaction Toradol IV for left wrist pain control and a wrist splint, apply ice Consider CT of the left wrist to rule a subtle fracture Orthopedic consulted. Continue seizure precautions Discussed with the patient and the nursing staff History Interval history: Patient is alert and oriented with stable vital signs. However she is very anxious. No seizure activity reported since admitted. Remains on Keppra. She has a swollen painful left wrist but x-ray showed no fracture. Orthopedic consulted. Hospitalist Physical - Constitutional Vitals: Temp Pulse Resp BP Pulse Ox 97.2 F L 100 H 18 116/72 100 03/01/21 15:31 03/01/21 16:40 03/01/21 16:40 03/01/21 16:40 03/01/21 16:40 General appearance: Present: mild distress, disheveled, other (Patient is currently very anxious) - EENT Eyes: Present: PERRL, EOM intact ENT: hearing intact, clear oral mucosa - Neck Neck: Present: supple - Respiratory Respiratory effort: normal Respiratory: bilateral: CTA - Cardiovascular Rhythm: regular - Extremities Extremities: No edema - Abdominal General gastrointestinal: soft, non-tender, non-distended - Integumentary Integumentary: Absent: rash - Psychiatric Psychiatric: other (Very anxious with a panic reaction) - Neurologic Neurologic: CNII-XII intact, focal deficits, moves all extremities - Additional findings Additional findings: Musculoskeletal: Left history is swollen, very tender with the reduced ROM. No edema. Left foot: Abrasion over medial aspect of first MTP is healing. Results - Labs CBC & Chem 7: 03/01/21 04:20 03/01/21 04:20 Labs: Laboratory Last Values WBC 7.8 K/mm3 (4.5-11.0) 03/01/21 04:20 RBC 3.75 M/mm3 (3.65-5.03) 03/01/21 04:20 Hgb 10.9 gm/dl (10.1-14.3) 03/01/21 04:20 Hct 33.6 % (30.3-42.9) 03/01/21 04:20 MCV 90 fl (79-97) 03/01/21 04:20 MCH 29 pg (28-32) 03/01/21 04:20 MCHC 33 % (30-34) 03/01/21 04:20 RDW 16.2 % (13.2-15.2) H 03/01/21 04:20 Plt Count 368 K/mm3 (140-440) 03/01/21 04:20 Power % (Auto) 5.1 % (0.0-7.3) 02/28/21 01:27 Eos % (Auto) 1.1 % (0.0-4.3) 02/28/21 01:27 Power # (Auto) 0.7 K/mm3 (0.0-0.8) 02/28/21 01:27 Eos # (Auto) 0.2 K/mm3 (0.0-0.4) 02/28/21 01:27 Baso # (Auto) 0.1 K/mm3 (0.0-0.1) 02/28/21 01:27 Add Manual Diff Complete 03/01/21 04:20 Total Counted 100 03/01/21 04:20 Seg Neutrophils % 81.0 % (40.0-70.0) H 02/28/21 01:27 Seg Neuts % (Manual) 53.0 % (40.0-70.0) 03/01/21 04:20 Band Neutrophils % 4.0 % 03/01/21 04:20 Lymphocytes % (Manual) 27.0 % (13.4-35.0) 03/01/21 04:20 Monocytes % (Manual) 10.0 % (0.0-7.3) H 03/01/21 04:20 Eosinophils % (Manual) 5.0 % (0.0-4.3) H 03/01/21 04:20 Basophils % (Manual) 1.0 % (0.0-1.8) 02/28/21 01:27 Metamyelocytes % 1.0 % 03/01/21 04:20 Nucleated RBC % Not Reportable 03/01/21 04:20 Seg Neutrophils # 11.6 K/mm3 (1.8-7.7) H 02/28/21 01:27 Seg Neutrophils # Man 4.1 K/mm3 (1.8-7.7) 03/01/21 04:20 Band Neutrophils # 0.3 K/mm3 03/01/21 04:20 Lymphocytes # (Manual) 2.1 K/mm3 (1.2-5.4) 03/01/21 04:20 Abs React Lymphs (Man) 0.0 K/mm3 03/01/21 04:20 Monocytes # (Manual) 0.8 K/mm3 (0.0-0.8) 03/01/21 04:20 Eosinophils # (Manual) 0.4 K/mm3 (0.0-0.4) 03/01/21 04:20 Basophils # (Manual) 0.0 K/mm3 (0.0-0.1) 03/01/21 04:20 Metamyelocytes # 0.1 K/mm3 03/01/21 04:20 Myelocytes # 0.0 K/mm3 03/01/21 04:20 Promyelocytes # 0.0 K/mm3 03/01/21 04:20 Blast Cells # 0.0 K/mm3 03/01/21 04:20 WBC Morphology Not Reportable 03/01/21 04:20 Hypersegmented Neuts Not Reportable 03/01/21 04:20 Hyposegmented Neuts Not Reportable 03/01/21 04:20 Hypogranular Neuts Not Reportable 03/01/21 04:20 Smudge Cells Not Reportable 03/01/21 04:20 Toxic Granulation Not Reportable 03/01/21 04:20 Toxic Vacuolation Not Reportable 03/01/21 04:20 Dohle Bodies Not Reportable 03/01/21 04:20 Pel[place]-Huet Anomaly Not Reportable 03/01/21 04:20 Jermaine Rods Not Reportable 03/01/21 04:20 Platelet Estimate Not Reportable 03/01/21 04:20 Clumped Platelets Not Reportable 03/01/21 04:20 Plt Clumps, EDTA Not Reportable 03/01/21 04:20 Large Platelets Not Reportable 03/01/21 04:20 Giant Platelets Not Reportable 03/01/21 04:20 Platelet Satelliting Not Reportable 03/01/21 04:20 Plt Morphology Comment Not Reportable 03/01/21 04:20 RBC Morphology Normal 03/01/21 04:20 Dimorphic RBCs Not Reportable 03/01/21 04:20 Polychromasia Not Reportable 03/01/21 04:20 Hypochromasia Not Reportable 03/01/21 04:20 Poikilocytosis Not Reportable 03/01/21 04:20 Anisocytosis Not Reportable 03/01/21 04:20 Microcytosis Not Reportable 03/01/21 04:20 Macrocytosis Not Reportable 03/01/21 04:20 Spherocytes Not Reportable 03/01/21 04:20 Pappenheimer Bodies Not Reportable 03/01/21 04:20 Sickle Cells Not Reportable 03/01/21 04:20 Target Cells Not Reportable 03/01/21 04:20 Tear Drop Cells Not Reportable 03/01/21 04:20 Ovalocytes Not Reportable 03/01/21 04:20 Helmet Cells Not Reportable 03/01/21 04:20 [place] Bodies Not Reportable 03/01/21 04:20 [place] Rings Not Reportable 03/01/21 04:20 [place] Cells Not Reportable 03/01/21 04:20 Bite Cells Not Reportable 03/01/21 04:20 Crenated Cell Not Reportable 03/01/21 04:20 Elliptocytes Not Reportable 03/01/21 04:20 Acanthocytes (Spur) Not Reportable 03/01/21 04:20 Rouleaux Not Reportable 03/01/21 04:20 Hemoglobin C Crystals Not Reportable 03/01/21 04:20 Schistocytes Not Reportable 03/01/21 04:20 Malaria parasites Not Reportable 03/01/21 04:20 Dex Bodies Not Reportable 03/01/21 04:20 Hem Pathologist Commnt No 03/01/21 04:20 Sodium 140 mmol/L (137-145) 03/01/21 04:20 Potassium 3.7 mmol/L (3.6-5.0) 03/01/21 04:20 Chloride 105.4 mmol/L (98-107) 03/01/21 04:20 Carbon Dioxide 23 mmol/L (22-30) 03/01/21 04:20 Anion Gap 15 mmol/L 03/01/21 04:20 BUN 8 mg/dL (7-17) 03/01/21 04:20 Creatinine 0.6 mg/dL (0.6-1.2) 03/01/21 04:20 Estimated GFR > 60 ml/min 03/01/21 04:20 BUN/Creatinine Ratio 13 % 03/01/21 04:20 Glucose 114 mg/dL (65-100) H 03/01/21 04:20 Calcium 8.6 mg/dL (8.4-10.2) 03/01/21 04:20 Total Bilirubin < 0.20 mg/dL (0.1-1.2) 03/01/21 04:20 AST 17 units/L (5-40) 03/01/21 04:20 ALT 15 units/L (7-56) 03/01/21 04:20 Alkaline Phosphatase 83 units/L (35-129) 03/01/21 04:20 Total Protein 6.3 g/dL (6.3-8.2) 03/01/21 04:20 Albumin 3.5 g/dL (3.9-5) L 03/01/21 04:20 Albumin/Globulin Ratio 1.3 % 03/01/21 04:20 Urine Color Colorless (Yellow) 02/28/21 04:25 Urine Turbidity Clear (Clear) 02/28/21 04:25 Urine pH 6.0 (5.0-7.0) 02/28/21 04:25 Ur Specific [place] 1.003 (1.003-1.030) 02/28/21 04:25 Urine Protein <15 mg/dl mg/dL (Negative) 02/28/21 04:25 Urine Glucose (UA) Neg mg/dL (Negative) 02/28/21 04:25 Urine Ketones Neg mg/dL (Negative) 02/28/21 04:25 Urine Blood Neg (Negative) 02/28/21 04:25 Urine Nitrite Neg (Negative) 02/28/21 04:25 Urine Bilirubin Neg (Negative) 02/28/21 04:25 Urine Urobilinogen < 2.0 mg/dL (<2.0) 02/28/21 04:25 Ur Leukocyte Esterase Neg (Negative) 02/28/21 04:25 Urine WBC (Auto) < 1.0 /HPF (0.0-6.0) 02/28/21 04:25 Urine RBC (Auto) < 1.0 /HPF (0.0-6.0) 02/28/21 04:25 U Epithel Cells (Auto) < 1.0 /HPF (0-13.0) 02/28/21 04:25 Urine Opiates Screen Negative 02/28/21 04:25 Urine Methadone Screen Negative 02/28/21 04:25 Ur Barbiturates Screen Negative 02/28/21 04:25 Ur Phencyclidine Scrn Negative 02/28/21 04:25 Ur Amphetamines Screen Negative 02/28/21 04:25 U Benzodiazepines Scrn Negative 02/28/21 04:25 Urine Cocaine Screen Negative 02/28/21 04:25 U Marijuana (THC) Screen Negative 02/28/21 04:25 Drugs of Abuse Note Disclamer 02/28/21 04:25 Plasma/Serum Alcohol < 0.01 % (0-0.07) 02/28/21 01:27 [place]/IV: Voiding Method Toilet Active Medications - Current Medications Current Medications: Generic Name Dose Route Start Last Admin Trade Name Freq PRN Reason Stop Dose Admin Acetaminophen 650 mg 02/28/21 06:16 02/28/21 07:44 Acetaminophen 325 Mg Tab PO 650 mg Q4H PRN Administration Pain MILD(1-3)/Fever >100.5/DASILVA Albuterol 2.5 mg 02/28/21 06:16 Albuterol 2.5 Mg/3 Ml Nebu IH Q4HRT PRN Shortness Of Breath Albuterol/Ipratropium 1 ampul 02/28/21 08:00 03/01/21 13:58 Ipratropium/Albuterol Sulfate 3 Ml Ampul.Neb IH 1 ampul Q6HRT ELSA Administration Alprazolam 0.5 mg 02/28/21 11:00 03/01/21 09:12 Alprazolam 0.5 Mg Tab PO 0.5 mg Q12HR ELSA Administration Buspirone HCl 10 mg 03/01/21 14:00 03/01/21 13:16 Buspirone 10 Mg Tab PO 10 mg TID LESA Administration Citalopram Hydrobromide 20 mg 03/01/21 13:00 03/01/21 13:16 Citalopram 20 Mg Tab PO 20 mg QDAY ELSA Administration Famotidine 20 mg 02/28/21 10:00 03/01/21 09:11 Famotidine 20 Mg Tab PO 20 mg BID ELSA Administration Gabapentin 100 mg 03/01/21 14:00 03/01/21 13:16 Gabapentin 100 Mg Cap PO 100 mg Q8HR ELSA Administration Hydroxyzine HCl 25 mg 03/01/21 12:46 Hydroxyzine Hcl 25 Mg Tab PO Q6H PRN Itching Thiamine HCl 250 mg/ Sodium 52.5 mls @ 100 mls/hr 03/01/21 10:00 03/01/21 09:11 Chloride IV 03/03/21 10:32 100 mls/hr QDAY ELSA Administration Ketorolac Tromethamine 30 mg 03/01/21 17:00 03/01/21 16:42 Ketorolac 30 Mg/1 Ml Inj IV 03/06/21 16:59 30 mg Q6H PRN Administration Pain, Moderate (4-6) Levetiracetam 500 mg 03/01/21 22:00 Levetiracetam 500 Mg Tab PO BID ELSA Naproxen 500 mg 03/01/21 22:00 Naproxen 500 Mg Tab PO BID ELSA Nicotine 21 mg 02/28/21 11:00 03/01/21 09:11 Nicotine 21 Mg/24 Hr Patch TD 21 mg QDAY ELSA Administration Sodium Chloride 10 ml 02/28/21 10:00 03/01/21 09:12 Sodium Chloride 0.9% 10 Ml Flush Syringe IV 10 ml BID ELSA Administration Sodium Chloride 10 ml 02/28/21 06:16 Sodium Chloride 0.9% 10 Ml Flush Syringe IV PRN PRN LINE FLUSH
[2021-03-01] MEDS ORDERED: LORazepam 2 MG/ML VIAL IV ONE (18:47)
[2021-03-01] MEDS: LORazepam 1 MG TAB PO SCH (22:26)
[2021-03-01] MEDS: levETIRAcetam 500 MG TAB PO SCH (22:26)
[2021-03-02] MEDS: LORazepam 1 MG TAB PO SCH ×3 (00:48→22:23)
[2021-03-02] MEDS: IPRATROPIUM/ALBUTEROL SULFATE 3 ML AMPUL.NEB IH SCH ×3 (04:14→16:36)
[2021-03-02] MEDS: GABAPENTIN 100 MG CAP PO SCH ×3 (05:25→22:20)
[2021-03-02] MEDS: NAPROXEN 500 MG TAB PO SCH ×3 (07:44→22:19)
[2021-03-02] MEDS: FAMOTIDINE 20 MG TAB PO SCH ×2 (09:39→22:20)
[2021-03-02] MEDS: CITALOPRAM 20 MG TAB PO SCH (09:39)
[2021-03-02] MEDS: busPIRone 10 MG TAB PO SCH ×3 (09:39→22:19)
[2021-03-02] MEDS: levETIRAcetam 500 MG TAB PO SCH ×2 (09:39→22:20)
[2021-03-02] MEDS: NICOTINE 21 MG/24 HR PATCH TD SCH (09:39)
[2021-03-02] MEDS: THIAMINE 250 MG in SODIUM CHLORIDE 0.9% 50 ML IV SCH (09:40)
[2021-03-02] MEDS: KETOROLAC 30 MG/1 ML INJ IV PRN ×2 (12:22→19:02)
--- NOTE | 2021-03-02 15:21 | Cat Scan Report ---
CT upper extrem LT wo con INDICATION: Swollen and painful left wrist after fall. TECHNIQUE: All CT scans at this location are performed using CT dose reduction for ALARA by means of automated e xposure control. COMPARISON: None available. FINDINGS: Acute nondisplaced fracture of dorsal aspect of distal radial metaphysis involving Farida's tubercle which does not extend into distal radioulnar or radiocarpal joints. No fracture of ulna styloid. Join t spaces well-preserved IMPRESSION: 1. Nondisplaced fracture involving the dorsal aspect of distal radial metaphysis involving Farida's t ubercle. No intra-articular extension Signer Name: Shailesh Louis MD Signed: 03/02/2021 3:16 PM Workstation Name: [id number]
--- NOTE | 2021-03-02 20:45 | Progress Note ---
Assessment and Plan Assessment and plan: 40-year-old female with the PMH of alcohol abuse, chronic anxiety, COPD and hypertension has been in the [facility] since 3 weeks. Last alcoholic drink was on 02/08/2021. Patient has no history of seizures. No history of fall alcohol withdrawal seizures either. Patient had a seizure, witnessed at the rehab facility and sent to ED. Started on Keppra. MRI unremarkable except evidence of chronic microangiopathy. Neurology consulted and EEG ordered. Currently no alcohol withdrawal symptoms. She is very somnolent but arousable. Able to give history. She is complaining of pain in left foot where she sustained an abrasion/laceration exposing a tendon on medial aspect of first metatarsal carpal joint. Patient states that she passed out with a seizure and does not know how she suffered injury. On exam, no obvious head injury, pupils normal. Face symmetric. No respiratory distress, muscular, hot regular rhythm, abdomen soft and nontender, extremities no edema. Neuro examsomnolent but is arousable. No focal motor deficit. No tremors. Left footthere is a circular laceration over medial aspect of first left metatarsal plantar joint exquisitely well. Not bleeding. Wound looks clean. Dressings in place. Assessment: New onset witnessed seizure, likely related to alcohol withdrawal No further seizures witnessed since arrival in the ED Somnolence likely from narcotics, resolved off narcotics MRI imaging unremarkable Neurology following, EEG ordered, Neurology does not recommend continuation of Keppra after discharge. Syncope and likelt fall from a seizure Left foot injury with laceration, no skeletal injuries on x-rays Left wrist swollen and painful, no fracture x-rays but CT shows nonarticular fracture. Severe anxiety with panic reaction, controlled with Ativan Plan: Ordered wrist brace Toradol IV for left wrist pain control and a wrist splint, apply ice Orthopedic consulted and need to see Discharge deferred pending Ortho evaluation Continue seizure precautions Discussed with the patient and the nursing staff History Interval history: Patient is a much calmer with Ativan. No seizure activity reported since admitted. CT of the left wrist shows nonarticular fracture. Ordered brace and is in Toradol for pain control. Orthopedic consulted but yet to see. Discharge pending orthopedic evaluation. Hospitalist Physical - Constitutional Vitals: Temp Pulse Resp BP Pulse Ox 98.4 F 81 18 133/70 98 03/02/21 19:41 10/24/21 19:41 03/02/21 19:41 03/02/21 19:41 03/02/21 19:41 General appearance: Present: no acute distress, disheveled - EENT Eyes: Present: PERRL, EOM intact. Absent: scleral icterus ENT: hearing intact, clear oral mucosa - Neck Neck: Present: supple - Respiratory Respiratory effort: normal Respiratory: bilateral: CTA - Cardiovascular Rhythm: regular - Extremities Extremities: No edema Extremity abnormal: other (A small abrasion over medial aspect of left first metatarsal joint is healing in the skin.Swelling, tenderness and ROM in left wrist better today.) - Abdominal General gastrointestinal: soft, non-tender, non-distended, normal bowel sounds - Integumentary Integumentary: Absent: rash - Psychiatric Psychiatric: other (Anxiety much relieved with Ativan) - Neurologic Neurologic: no focal deficits Results - Labs CBC & Chem 7: 03/01/21 04:20 03/01/21 04:20 Labs: Laboratory Last Values WBC 7.8 K/mm3 (4.5-11.0) 03/01/21 04:20 RBC 3.75 M/mm3 (3.65-5.03) 03/01/21 04:20 Hgb 10.9 gm/dl (10.1-14.3) 03/01/21 04:20 Hct 33.6 % (30.3-42.9) 03/01/21 04:20 MCV 90 fl (79-97) 03/01/21 04:20 MCH 29 pg (28-32) 03/01/21 04:20 MCHC 33 % (30-34) 03/01/21 04:20 RDW 16.2 % (13.2-15.2) H 03/01/21 04:20 Plt Count 368 K/mm3 (140-440) 03/01/21 04:20 Love % (Auto) 5.1 % (0.0-7.3) 02/28/21 01:27 Eos % (Auto) 1.1 % (0.0-4.3) 02/28/21 01:27 Love # (Auto) 0.7 K/mm3 (0.0-0.8) 02/28/21 01:27 Eos # (Auto) 0.2 K/mm3 (0.0-0.4) 02/28/21 01:27 Baso # (Auto) 0.1 K/mm3 (0.0-0.1) 02/28/21 01:27 Add Manual Diff Complete 03/01/21 04:20 Total Counted 100 03/01/21 04:20 Seg Neutrophils % 81.0 % (40.0-70.0) H 02/28/21 01:27 Seg Neuts % (Manual) 53.0 % (40.0-70.0) 03/01/21 04:20 Band Neutrophils % 4.0 % 03/01/21 04:20 Lymphocytes % (Manual) 27.0 % (13.4-35.0) 03/01/21 04:20 Monocytes % (Manual) 10.0 % (0.0-7.3) H 03/01/21 04:20 Eosinophils % (Manual) 5.0 % (0.0-4.3) H 03/01/21 04:20 Basophils % (Manual) 1.0 % (0.0-1.8) 02/28/21 01:27 Metamyelocytes % 1.0 % 03/01/21 04:20 Nucleated RBC % Not Reportable 03/01/21 04:20 Seg Neutrophils # 11.6 K/mm3 (1.8-7.7) H 02/28/21 01:27 Seg Neutrophils # Man 4.1 K/mm3 (1.8-7.7) 03/01/21 04:20 Band Neutrophils # 0.3 K/mm3 03/01/21 04:20 Lymphocytes # (Manual) 2.1 K/mm3 (1.2-5.4) 03/01/21 04:20 Abs React Lymphs (Man) 0.0 K/mm3 03/01/21 04:20 Monocytes # (Manual) 0.8 K/mm3 (0.0-0.8) 03/01/21 04:20 Eosinophils # (Manual) 0.4 K/mm3 (0.0-0.4) 03/01/21 04:20 Basophils # (Manual) 0.0 K/mm3 (0.0-0.1) 03/01/21 04:20 Metamyelocytes # 0.1 K/mm3 03/01/21 04:20 Myelocytes # 0.0 K/mm3 03/01/21 04:20 Promyelocytes # 0.0 K/mm3 03/01/21 04:20 Blast Cells # 0.0 K/mm3 03/01/21 04:20 WBC Morphology Not Reportable 03/01/21 04:20 Hypersegmented Neuts Not Reportable 03/01/21 04:20 Hyposegmented Neuts Not Reportable 03/01/21 04:20 Hypogranular Neuts Not Reportable 03/01/21 04:20 Smudge Cells Not Reportable 03/01/21 04:20 Toxic Granulation Not Reportable 03/01/21 04:20 Toxic Vacuolation Not Reportable 03/01/21 04:20 Dohle Bodies Not Reportable 03/01/21 04:20 Pelger-Huet Anomaly Not Reportable 03/01/21 04:20 Jermaine Rods Not Reportable 03/01/21 04:20 Platelet Estimate Not Reportable 03/01/21 04:20 Clumped Platelets Not Reportable 03/01/21 04:20 Plt Clumps, EDTA Not Reportable 03/01/21 04:20 Large Platelets Not Reportable 03/01/21 04:20 Giant Platelets Not Reportable 03/01/21 04:20 Platelet Satelliting Not Reportable 03/01/21 04:20 Plt Morphology Comment Not Reportable 03/01/21 04:20 RBC Morphology Normal 03/01/21 04:20 Dimorphic RBCs Not Reportable 03/01/21 04:20 Polychromasia Not Reportable 03/01/21 04:20 Hypochromasia Not Reportable 03/01/21 04:20 Poikilocytosis Not Reportable 03/01/21 04:20 Anisocytosis Not Reportable 03/01/21 04:20 Microcytosis Not Reportable 03/01/21 04:20 Macrocytosis Not Reportable 03/01/21 04:20 Spherocytes Not Reportable 03/01/21 04:20 Pappenheimer Bodies Not Reportable 03/01/21 04:20 Sickle Cells Not Reportable 03/01/21 04:20 Target Cells Not Reportable 03/01/21 04:20 Tear Drop Cells Not Reportable 03/01/21 04:20 Ovalocytes Not Reportable 03/01/21 04:20 Helmet Cells Not Reportable 03/01/21 04:20 [place] Bodies Not Reportable 03/01/21 04:20 [place] Rings Not Reportable 03/01/21 04:20 [place] Cells Not Reportable 03/01/21 04:20 Bite Cells Not Reportable 03/01/21 04:20 Crenated Cell Not Reportable 03/01/21 04:20 Elliptocytes Not Reportable 03/01/21 04:20 Acanthocytes (Spur) Not Reportable 03/01/21 04:20 Rouleaux Not Reportable 03/01/21 04:20 Hemoglobin C Crystals Not Reportable 03/01/21 04:20 Schistocytes Not Reportable 03/01/21 04:20 Malaria parasites Not Reportable 03/01/21 04:20 Dex Bodies Not Reportable 03/01/21 04:20 Hem Pathologist Commnt No 03/01/21 04:20 Sodium 140 mmol/L (137-145) 03/01/21 04:20 Potassium 3.7 mmol/L (3.6-5.0) 03/01/21 04:20 Chloride 105.4 mmol/L (98-107) 03/01/21 04:20 Carbon Dioxide 23 mmol/L (22-30) 03/01/21 04:20 Anion Gap 15 mmol/L 03/01/21 04:20 BUN 8 mg/dL (7-17) 03/01/21 04:20 Creatinine 0.6 mg/dL (0.6-1.2) 03/01/21 04:20 Estimated GFR > 60 ml/min 03/01/21 04:20 BUN/Creatinine Ratio 13 % 03/01/21 04:20 Glucose 114 mg/dL (65-100) H 03/01/21 04:20 Calcium 8.6 mg/dL (8.4-10.2) 03/01/21 04:20 Total Bilirubin < 0.20 mg/dL (0.1-1.2) 03/01/21 04:20 AST 17 units/L (5-40) 03/01/21 04:20 ALT 15 units/L (7-56) 03/01/21 04:20 Alkaline Phosphatase 83 units/L (35-129) 03/01/21 04:20 Total Protein 6.3 g/dL (6.3-8.2) 03/01/21 04:20 Albumin 3.5 g/dL (3.9-5) L 03/01/21 04:20 Albumin/Globulin Ratio 1.3 % 03/01/21 04:20 Urine Color Colorless (Yellow) 02/28/21 04:25 Urine Turbidity Clear (Clear) 02/28/21 04:25 Urine pH 6.0 (5.0-7.0) 02/28/21 04:25 Ur Specific [place] 1.003 (1.003-1.030) 02/28/21 04:25 Urine Protein <15 mg/dl mg/dL (Negative) 02/28/21 04:25 Urine Glucose (UA) Neg mg/dL (Negative) 02/28/21 04:25 Urine Ketones Neg mg/dL (Negative) 02/28/21 04:25 Urine Blood Neg (Negative) 02/28/21 04:25 Urine Nitrite Neg (Negative) 02/28/21 04:25 Urine Bilirubin Neg (Negative) 02/28/21 04:25 Urine Urobilinogen < 2.0 mg/dL (<2.0) 02/28/21 04:25 Ur Leukocyte Esterase Neg (Negative) 02/28/21 04:25 Urine WBC (Auto) < 1.0 /HPF (0.0-6.0) 02/28/21 04:25 Urine RBC (Auto) < 1.0 /HPF (0.0-6.0) 02/28/21 04:25 U Epithel Cells (Auto) < 1.0 /HPF (0-13.0) 02/28/21 04:25 Urine Opiates Screen Negative 02/28/21 04:25 Urine Methadone Screen Negative 02/28/21 04:25 Ur Barbiturates Screen Negative 02/28/21 04:25 Ur Phencyclidine Scrn Negative 02/28/21 04:25 Ur Amphetamines Screen Negative 02/28/21 04:25 U Benzodiazepines Scrn Negative 02/28/21 04:25 Urine Cocaine Screen Negative 02/28/21 04:25 U Marijuana (THC) Screen Negative 02/28/21 04:25 Drugs of Abuse Note Disclamer 02/28/21 04:25 Plasma/Serum Alcohol < 0.01 % (0-0.07) 02/28/21 01:27 [place]/IV: Voiding Method Toilet Active Medications - Current Medications Current Medications: Generic Name Dose Route Start Last Admin Trade Name Freq PRN Reason Stop Dose Admin Acetaminophen 650 mg 02/28/21 06:16 02/28/21 07:44 Acetaminophen 325 Mg Tab PO 650 mg Q4H PRN Administration Pain MILD(1-3)/Fever >100.5/DASILVA Albuterol 2.5 mg 02/28/21 06:16 Albuterol 2.5 Mg/3 Ml Nebu IH Q4HRT PRN Shortness Of Breath Albuterol/Ipratropium 1 ampul 02/28/21 08:00 03/02/21 16:36 Ipratropium/Albuterol Sulfate 3 Ml Ampul.Neb IH Not Given Q6HRT ELSA Buspirone HCl 10 mg 03/01/21 14:00 03/02/21 14:14 Buspirone 10 Mg Tab PO 10 mg TID ELSA Administration Citalopram Hydrobromide 20 mg 03/01/21 13:00 03/02/21 09:39 Citalopram 20 Mg Tab PO 20 mg QDAY ELSA Administration Famotidine 20 mg 02/28/21 10:00 03/02/21 09:39 Famotidine 20 Mg Tab PO 20 mg BID ELSA Administration Gabapentin 100 mg 03/01/21 14:00 03/02/21 14:14 Gabapentin 100 Mg Cap PO 100 mg Q8HR ELSA Administration Hydroxyzine HCl 25 mg 03/01/21 12:46 Hydroxyzine Hcl 25 Mg Tab PO Q6H PRN Itching Thiamine HCl 250 mg/ Sodium 52.5 mls @ 100 mls/hr 03/01/21 10:00 03/02/21 09:40 Chloride IV 03/03/21 10:32 100 mls/hr QDAY ELSA Administration Ketorolac Tromethamine 30 mg 03/01/21 17:00 03/02/21 19:02 Ketorolac 30 Mg/1 Ml Inj IV 03/06/21 16:59 30 mg Q6H PRN Administration Pain, Moderate (4-6) Levetiracetam 500 mg 03/01/21 22:00 03/02/21 09:39 Levetiracetam 500 Mg Tab PO 500 mg BID ELSA Administration Lorazepam 1 mg 03/01/21 20:00 03/02/21 09:41 Lorazepam 1 Mg Tab PO 1 mg BID ELSA Administration Naproxen 500 mg 03/01/21 22:00 03/02/21 09:40 Naproxen 500 Mg Tab PO 500 mg BID ELSA Administration Nicotine 21 mg 02/28/21 11:00 03/02/21 09:39 Nicotine 21 Mg/24 Hr Patch TD 21 mg QDAY ELSA Administration Sodium Chloride 10 ml 02/28/21 10:00 03/02/21 09:40 Sodium Chloride 0.9% 10 Ml Flush Syringe IV 10 ml BID ELSA Administration Sodium Chloride 10 ml 02/28/21 06:16 Sodium Chloride 0.9% 10 Ml Flush Syringe IV PRN PRN LINE FLUSH
[2021-03-03] MEDS: KETOROLAC 30 MG/1 ML INJ IV PRN ×3 (01:18→20:38)
[2021-03-03] MEDS: GABAPENTIN 100 MG CAP PO SCH ×3 (07:14→21:57)
[2021-03-03] MEDS: busPIRone 10 MG TAB PO SCH ×3 (08:27→20:38)
[2021-03-03] MEDS: levETIRAcetam 500 MG TAB PO SCH ×2 (09:08→21:58)
[2021-03-03] MEDS: LORazepam 1 MG TAB PO SCH ×2 (09:09→21:59)
[2021-03-03] MEDS: FAMOTIDINE 20 MG TAB PO SCH ×2 (09:09→21:58)
[2021-03-03] MEDS: NAPROXEN 500 MG TAB PO SCH ×2 (09:09→21:58)
[2021-03-03] MEDS: CITALOPRAM 20 MG TAB PO SCH (09:09)
[2021-03-03] MEDS: THIAMINE 250 MG in SODIUM CHLORIDE 0.9% 50 ML IV SCH (09:10)
[2021-03-03] MEDS: NICOTINE 21 MG/24 HR PATCH TD SCH (09:10)
[2021-03-03] MEDS: IPRATROPIUM/ALBUTEROL SULFATE 3 ML AMPUL.NEB IH SCH ×3 (09:44→20:51)
[2021-03-03] MEDS ORDERED: ONDANSETRON 4 MG ODT TAB PO PRN (16:00)
--- NOTE | 2021-03-03 19:42 | Progress Note ---
Assessment and Plan Assessment and plan: 40-year-old female with the PMH of alcohol abuse, chronic anxiety, COPD and hypertension has been in the alcohol [facility]habsober since 3 weeks. Last alcoholic drink was on 02/08/2021. Patient has no history of seizures. No history of fall alcohol withdrawal seizures either. Patient had a seizure, witnessed at the rehab facility and sent to ED. Started on Keppra. MRI unremarkable except evidence of chronic microangiopathy. Neurology consulted and EEG ordered. Currently no alcohol withdrawal symptoms. She is very somnolent but arousable. Able to give history. She is complaining of pain in left foot where she sustained an abrasion/laceration exposing a tendon on medial aspect of first metatarsal carpal joint. Patient states that she passed out with a seizure and does not know how she suffered injury. On exam, no obvious head injury, pupils normal. Face symmetric. No respiratory distress, muscular, hot regular rhythm, abdomen soft and nontender, extremities no edema. Neuro examsomnolent but is arousable. No focal motor deficit. No tremors. Left footthere is a circular laceration over medial aspect of first left metatarsal plantar joint exquisitely well. Not bleeding. Wound looks clean. Dressings in place. Assessment: New onset witnessed seizure, likely related to alcohol withdrawal No further seizures witnessed since arrival in the ED Somnolence likely from narcotics, resolved off narcotics MRI imaging unremarkable Neurology following, EEG ordered, Neurology does not recommend continuation of Keppra after discharge. Syncope and likelt fall from a seizure Left foot injury with a small skin laceration, no skeletal injuries on x-rays Left wrist swollen and painful, no fracture x-rays but CT shows nonarticular fracture. Severe anxiety with panic reaction, controlled with Ativan Plan: Ordered wrist brace Toradol IV for left wrist pain control and a wrist splint, apply icesymptoms much better Orthopedic consulted and yet to see Discharge deferred pending Ortho evaluation, Ortho office called to remind. Continue seizure precautions Discussed with the patient and the nursing staff History Interval history: Patient is a much calmer with Ativan. No seizure activity reported since admitted. CT of the left wrist shows nonarticular fracture. Ordered brace and is in Toradol for pain control. Orthopedic consulted but yet to see. Discharge pending orthopedic evaluation. Hospitalist Physical - Constitutional Vitals: Temp Pulse Resp BP Pulse Ox 98.8 F 98 H 18 120/67 97 03/03/21 19:28 03/03/21 19:28 03/03/21 19:28 03/03/21 19:28 03/03/21 19:28 General appearance: Present: no acute distress, disheveled - EENT Eyes: Present: PERRL, EOM intact ENT: clear oral mucosa - Neck Neck: Present: supple - Respiratory Respiratory effort: normal Respiratory: bilateral: CTA - Cardiovascular Rhythm: regular - Extremities Extremities: No edema Extremity abnormal: other (Left wrist: Brace is in place. Small abrasion over medial aspect of left first metatarsal joint is healing well.) - Abdominal General gastrointestinal: soft, non-tender, non-distended, normal bowel sounds - Integumentary Integumentary: Absent: rash - Psychiatric Psychiatric: other (Anxiety much improved with Ativan) - Neurologic Neurologic: no focal deficits Results - Labs CBC & Chem 7: 03/01/21 04:20 03/01/21 04:20 Labs: Laboratory Last Values WBC 7.8 K/mm3 (4.5-11.0) 03/01/21 04:20 RBC 3.75 M/mm3 (3.65-5.03) 03/01/21 04:20 Hgb 10.9 gm/dl (10.1-14.3) 03/01/21 04:20 Hct 33.6 % (30.3-42.9) 03/01/21 04:20 MCV 90 fl (79-97) 03/01/21 04:20 MCH 29 pg (28-32) 03/01/21 04:20 MCHC 33 % (30-34) 03/01/21 04:20 RDW 16.2 % (13.2-15.2) H 03/01/21 04:20 Plt Count 368 K/mm3 (140-440) 03/01/21 04:20 [place] % (Auto) 5.1 % (0.0-7.3) 02/28/21 01:27 Eos % (Auto) 1.1 % (0.0-4.3) 02/28/21 01:27 [place] # (Auto) 0.7 K/mm3 (0.0-0.8) 02/28/21 01:27 Eos # (Auto) 0.2 K/mm3 (0.0-0.4) 02/28/21 01:27 Baso # (Auto) 0.1 K/mm3 (0.0-0.1) 02/28/21 01:27 Add Manual Diff Complete 03/01/21 04:20 Total Counted 100 03/01/21 04:20 Seg Neutrophils % 81.0 % (40.0-70.0) H 02/28/21 01:27 Seg Neuts % (Manual) 53.0 % (40.0-70.0) 03/01/21 04:20 Band Neutrophils % 4.0 % 03/01/21 04:20 Lymphocytes % (Manual) 27.0 % (13.4-35.0) 03/01/21 04:20 Monocytes % (Manual) 10.0 % (0.0-7.3) H 03/01/21 04:20 Eosinophils % (Manual) 5.0 % (0.0-4.3) H 03/01/21 04:20 Basophils % (Manual) 1.0 % (0.0-1.8) 02/28/21 01:27 Metamyelocytes % 1.0 % 03/01/21 04:20 Nucleated RBC % Not Reportable 03/01/21 04:20 Seg Neutrophils # 11.6 K/mm3 (1.8-7.7) H 02/28/21 01:27 Seg Neutrophils # Man 4.1 K/mm3 (1.8-7.7) 03/01/21 04:20 Band Neutrophils # 0.3 K/mm3 03/01/21 04:20 Lymphocytes # (Manual) 2.1 K/mm3 (1.2-5.4) 03/01/21 04:20 Abs React Lymphs (Man) 0.0 K/mm3 03/01/21 04:20 Monocytes # (Manual) 0.8 K/mm3 (0.0-0.8) 03/01/21 04:20 Eosinophils # (Manual) 0.4 K/mm3 (0.0-0.4) 03/01/21 04:20 Basophils # (Manual) 0.0 K/mm3 (0.0-0.1) 03/01/21 04:20 Metamyelocytes # 0.1 K/mm3 03/01/21 04:20 Myelocytes # 0.0 K/mm3 03/01/21 04:20 Promyelocytes # 0.0 K/mm3 03/01/21 04:20 Blast Cells # 0.0 K/mm3 03/01/21 04:20 WBC Morphology Not Reportable 03/01/21 04:20 Hypersegmented Neuts Not Reportable 03/01/21 04:20 Hyposegmented Neuts Not Reportable 03/01/21 04:20 Hypogranular Neuts Not Reportable 03/01/21 04:20 Smudge Cells Not Reportable 03/01/21 04:20 Toxic Granulation Not Reportable 03/01/21 04:20 Toxic Vacuolation Not Reportable 03/01/21 04:20 Dohle Bodies Not Reportable 03/01/21 04:20 Pelger-Huet Anomaly Not Reportable 03/01/21 04:20 Jermaine Rods Not Reportable 03/01/21 04:20 Platelet Estimate Not Reportable 03/01/21 04:20 Clumped Platelets Not Reportable 03/01/21 04:20 Plt Clumps, EDTA Not Reportable 03/01/21 04:20 Large Platelets Not Reportable 03/01/21 04:20 Giant Platelets Not Reportable 03/01/21 04:20 Platelet Satelliting Not Reportable 03/01/21 04:20 Plt Morphology Comment Not Reportable 03/01/21 04:20 RBC Morphology Normal 03/01/21 04:20 Dimorphic RBCs Not Reportable 03/01/21 04:20 Polychromasia Not Reportable 03/01/21 04:20 Hypochromasia Not Reportable 03/01/21 04:20 Poikilocytosis Not Reportable 03/01/21 04:20 Anisocytosis Not Reportable 03/01/21 04:20 Microcytosis Not Reportable 03/01/21 04:20 Macrocytosis Not Reportable 03/01/21 04:20 Spherocytes Not Reportable 03/01/21 04:20 Pappenheimer Bodies Not Reportable 03/01/21 04:20 Sickle Cells Not Reportable 03/01/21 04:20 Target Cells Not Reportable 03/01/21 04:20 Tear Drop Cells Not Reportable 03/01/21 04:20 Ovalocytes Not Reportable 03/01/21 04:20 Helmet Cells Not Reportable 03/01/21 04:20 [place] Bodies Not Reportable 03/01/21 04:20 [place] Rings Not Reportable 03/01/21 04:20 Kehinde Cells Not Reportable 03/01/21 04:20 Bite Cells Not Reportable 03/01/21 04:20 Crenated Cell Not Reportable 03/01/21 04:20 Elliptocytes Not Reportable 03/01/21 04:20 Acanthocytes (Spur) Not Reportable 03/01/21 04:20 Rouleaux Not Reportable 03/01/21 04:20 Hemoglobin C Crystals Not Reportable 03/01/21 04:20 Schistocytes Not Reportable 03/01/21 04:20 Malaria parasites Not Reportable 03/01/21 04:20 Dex Bodies Not Reportable 03/01/21 04:20 Hem Pathologist Commnt No 03/01/21 04:20 Sodium 140 mmol/L (137-145) 03/01/21 04:20 Potassium 3.7 mmol/L (3.6-5.0) 03/01/21 04:20 Chloride 105.4 mmol/L (98-107) 03/01/21 04:20 Carbon Dioxide 23 mmol/L (22-30) 03/01/21 04:20 Anion Gap 15 mmol/L 03/01/21 04:20 BUN 8 mg/dL (7-17) 03/01/21 04:20 Creatinine 0.6 mg/dL (0.6-1.2) 03/01/21 04:20 Estimated GFR > 60 ml/min 03/01/21 04:20 BUN/Creatinine Ratio 13 % 03/01/21 04:20 Glucose 114 mg/dL (65-100) H 03/01/21 04:20 Calcium 8.6 mg/dL (8.4-10.2) 03/01/21 04:20 Total Bilirubin < 0.20 mg/dL (0.1-1.2) 03/01/21 04:20 AST 17 units/L (5-40) 03/01/21 04:20 ALT 15 units/L (7-56) 03/01/21 04:20 Alkaline Phosphatase 83 units/L (35-129) 03/01/21 04:20 Total Protein 6.3 g/dL (6.3-8.2) 03/01/21 04:20 Albumin 3.5 g/dL (3.9-5) L 03/01/21 04:20 Albumin/Globulin Ratio 1.3 % 03/01/21 04:20 Urine Color Colorless (Yellow) 02/28/21 04:25 Urine Turbidity Clear (Clear) 02/28/21 04:25 Urine pH 6.0 (5.0-7.0) 02/28/21 04:25 Ur Specific Paul 1.003 (1.003-1.030) 02/28/21 04:25 Urine Protein <15 mg/dl mg/dL (Negative) 02/28/21 04:25 Urine Glucose (UA) Neg mg/dL (Negative) 02/28/21 04:25 Urine Ketones Neg mg/dL (Negative) 02/28/21 04:25 Urine Blood Neg (Negative) 02/28/21 04:25 Urine Nitrite Neg (Negative) 02/28/21 04:25 Urine Bilirubin Neg (Negative) 02/28/21 04:25 Urine Urobilinogen < 2.0 mg/dL (<2.0) 02/28/21 04:25 Ur Leukocyte Esterase Neg (Negative) 02/28/21 04:25 Urine WBC (Auto) < 1.0 /HPF (0.0-6.0) 02/28/21 04:25 Urine RBC (Auto) < 1.0 /HPF (0.0-6.0) 02/28/21 04:25 U Epithel Cells (Auto) < 1.0 /HPF (0-13.0) 02/28/21 04:25 Urine Opiates Screen Negative 02/28/21 04:25 Urine Methadone Screen Negative 02/28/21 04:25 Ur Barbiturates Screen Negative 02/28/21 04:25 Ur Phencyclidine Scrn Negative 02/28/21 04:25 Ur Amphetamines Screen Negative 02/28/21 04:25 U Benzodiazepines Scrn Negative 02/28/21 04:25 Urine Cocaine Screen Negative 02/28/21 04:25 U Marijuana (THC) Screen Negative 02/28/21 04:25 Drugs of Abuse Note Disclamer 02/28/21 04:25 Plasma/Serum Alcohol < 0.01 % (0-0.07) 02/28/21 01:27 [place]/IV: Voiding Method Toilet Active Medications - Current Medications Current Medications: Generic Name Dose Route Start Last Admin Trade Name Freq PRN Reason Stop Dose Admin Acetaminophen 650 mg 02/28/21 06:16 02/28/21 07:44 Acetaminophen 325 Mg Tab PO 650 mg Q4H PRN Administration Pain MILD(1-3)/Fever >100.5/DASILVA Albuterol 2.5 mg 02/28/21 06:16 Albuterol 2.5 Mg/3 Ml Nebu IH Q4HRT PRN Shortness Of Breath Albuterol/Ipratropium 1 ampul 02/28/21 08:00 03/03/21 15:06 Ipratropium/Albuterol Sulfate 3 Ml Ampul.Neb IH 1 ampul Q6HRT ELSA Administration Buspirone HCl 10 mg 03/01/21 14:00 03/03/21 13:28 Buspirone 10 Mg Tab PO 10 mg TID ELSA Administration Citalopram Hydrobromide 20 mg 03/01/21 13:00 03/03/21 09:09 Citalopram 20 Mg Tab PO 20 mg QDAY ELSA Administration Famotidine 20 mg 02/28/21 10:00 03/03/21 09:09 Famotidine 20 Mg Tab PO 20 mg BID ELSA Administration Gabapentin 100 mg 03/01/21 14:00 03/03/21 13:29 Gabapentin 100 Mg Cap PO 100 mg Q8HR ELSA Administration Hydroxyzine HCl 25 mg 03/01/21 12:46 Hydroxyzine Hcl 25 Mg Tab PO Q6H PRN Itching Ketorolac Tromethamine 30 mg 03/01/21 17:00 03/03/21 10:33 Ketorolac 30 Mg/1 Ml Inj IV 03/06/21 16:59 30 mg Q6H PRN Administration Pain, Moderate (4-6) Levetiracetam 500 mg 03/01/21 22:00 03/03/21 09:08 Levetiracetam 500 Mg Tab PO 500 mg BID ELSA Administration Lorazepam 1 mg 03/01/21 20:00 03/03/21 09:09 Lorazepam 1 Mg Tab PO 1 mg BID ELSA Administration Naproxen 500 mg 03/01/21 22:00 03/03/21 09:09 Naproxen 500 Mg Tab PO 500 mg BID ELSA Administration Nicotine 21 mg 02/28/21 11:00 03/03/21 09:10 Nicotine 21 Mg/24 Hr Patch TD 21 mg QDAY ELSA Administration Ondansetron HCl 4 mg 03/03/21 16:00 03/03/21 16:50 Ondansetron 4 Mg Odt Tab PO 4 mg Q8H PRN Administration Nausea And Vomiting Sodium Chloride 10 ml 02/28/21 10:00 03/03/21 09:10 Sodium Chloride 0.9% 10 Ml Flush Syringe IV 10 ml BID ELSA Administration Sodium Chloride 10 ml 02/28/21 06:16 Sodium Chloride 0.9% 10 Ml Flush Syringe IV PRN PRN LINE FLUSH Nutrition/Malnutrition Assess - Dietary Evaluation Nutrition/Malnutrition Findings: Nutrition Notes Start: 03/03/21 15:19 Freq: Status: Active Protocol: Document 03/03/21 15:19 GENTRY (Rec: 03/03/21 15:38 GENTRY [id number]) Nutrition Notes 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 Current Diet Regular Diet (since L 03/01). Labs/Tests 03/02: Glu 114. Pertinent Medications 03/03: Nutritionally unremarkable. Height 5 ft 6 in Weight 54.4 kg [place] Body Weight (kg) 59.09 BMI 19.3 Weight Status Appropriate Percent of energy/protein needs met: Prescribed Regular Diet provides for energy/protein needs (2,289 Kcal/89 g) during LOS. Burn Absent Trauma Absent GI Symptoms None Food Allergy No Skin Integrity/Comment Clear, warm, dry, other injuries Current % PO Good (75-100%) Minimum of two criteria No physical signs of malnutrition #1 Nutrition Diagnosis No nutrition diagnosis at this time Comments: Pt shows no garnica of skin risk concern, other than lacerations due to fall during seizure episode. Is patient on ventilator? No Is Patient Ambulatory and/or Out of Bed Yes REE-([place] or-ambulatory/OOB) [ 1567.475 NUTR.[id number]] Kcal/Kg value to use for calculation 30 Approximate Energy Requirements Using 1632 kcal/Kg Calculation Used for Recommendations Kcal/kg Additional Notes Protein: 1.0-1.2 g/Kg/day; 59- 71 g/day; 236-284 Kcal/day ( from IBW). Fluids: 1.0 ml/Kcal/day, or as per MD. Nutrition Intervention Change Diet Order: Continue Regular Diet. Goal #1 Maintain body weight within +/ -3% of current BWt during LOS. Goal #2 Reach and maintain acceptable chemistry lab values during LOS. Follow-Up By: 04/01/21 Additional Comments Continue monitoring tolerance of foods, %PO intake of meals, Hydration, and BM.
[2021-03-04] MEDS: KETOROLAC 30 MG/1 ML INJ IV PRN ×2 (02:06→09:41)
[2021-03-04] MEDS: IPRATROPIUM/ALBUTEROL SULFATE 3 ML AMPUL.NEB IH SCH ×2 (03:15→08:30)
[2021-03-04] MEDS: GABAPENTIN 100 MG CAP PO SCH (05:54)
[2021-03-04] MEDS: FAMOTIDINE 20 MG TAB PO SCH (09:41)
[2021-03-04] MEDS: LORazepam 1 MG TAB PO SCH (09:41)
[2021-03-04] MEDS: CITALOPRAM 20 MG TAB PO SCH (09:41)
[2021-03-04] MEDS: busPIRone 10 MG TAB PO SCH (09:41)
[2021-03-04] MEDS: NICOTINE 21 MG/24 HR PATCH TD SCH (09:41)
[2021-03-04] MEDS: levETIRAcetam 500 MG TAB PO SCH (09:42)
[2021-03-04] MEDS: NAPROXEN 500 MG TAB PO SCH (09:53)
--- NOTE | 2021-03-04 10:20 | Discharge Summary ---
Providers - Providers Date of Admission: 02/28/21 03:26 Date of discharge: 03/04/21 Attending physician: CHERYL MUNGUIA 02/28/21 06:16 Consult to Physician [CONS] Routine Comment: Consulting Provider: CARLITA CASTRO Physician Instructions: Reason For Exam: seizure 03/01/21 12:44 Consult to Physician [CONS] Routine Comment: Consulting Provider: IRINA DURAN Physician Instructions: Reason For Exam: Laceration right foot with tendon exposure, trauma Primary care physician: [employer]IGHW[employer] ENGINEERING TECHNICIAN Hospitalization Condition: Critical Hospital course: 40-year-old female with the PMH of alcohol abuse, chronic anxiety, COPD and hypertension has been in the alcohol rehabsober since 3 weeks. Last alcoholic drink was on 02/08/2021. Patient has no history of seizures. No history of fall alcohol withdrawal seizures either. Patient had a seizure, witnessed at the rehab facility and sent to ED. Started on Keppra. MRI unremarkable except evidence of chronic microangiopathy. Neurology consulted and EEG ordered. EEG was unremarkable. CT scan of the head unremarkable. MRI was unremarkable. The patient received thiamine IV 250 mg daily x3 days. Patient also complains of left wrist pain. Initial x-rays showed no fracture. Therefore, CT scan of the upper extremity obtained which revealed a nondisplaced fracture involving the dorsal aspect of distal radial metaphysis involving Farida's tubercle. Wrist brace was ordered and patient is to follow-up with orthopedics as an outpatient. With regards to the seizure, neurology does not recommend continuation of Keppra after discharge. However, patient wants to continue Keppra until follow- up with neurology as an outpatient. Dedicated discharge time 35 minutes. Disposition: 01 HOME / SELF CARE / HOMELESS Final Discharge Diagnosis (Prints w/discharge instructions): Alcohol withdrawal seizure, wrist fracture Core Measure Documentation - Palliative Care Palliative Care/ Comfort Measures: Not Applicable - Core Measures Any of the following diagnoses?: none Exam - Constitutional Vitals: Temp Pulse Resp BP Pulse Ox 97.8 F 90 18 140/78 98 03/04/21 07:49 03/04/21 08:00 03/04/21 08:00 03/04/21 07:49 03/04/21 10:00 General appearance: Present: no acute distress, well-nourished - EENT Eyes: Present: PERRL ENT: hearing intact, clear oral mucosa - Neck Neck: Present: supple, normal ROM - Respiratory Respiratory effort: normal Respiratory: bilateral: CTA - Cardiovascular Heart Sounds: Present: S1 & S2. Absent: rub, click - Extremities Extremities: pulses symmetrical, No edema Peripheral Pulses: within normal limits - Abdominal General gastrointestinal: Present: soft, non-tender, non-distended, normal bowel sounds Female genitourinary: Present: normal - Integumentary Integumentary: Present: clear, warm, dry - Musculoskeletal Musculoskeletal: gait normal, strength equal bilaterally - Psychiatric Psychiatric: appropriate mood/affect, intact judgment & insight - Neurologic Neurologic: CNII-XII intact, moves all extremities Plan Activity: advance as tolerated Weight Bearing Status: Weight Bear as Tolerated Diet: regular Follow up with: PRIMARY CAREMD [Primary Care Provider] - 7 Days MILLIE HUTTON MD [Staff Physician] - 7 Days Prescriptions: Buspirone HCl [busPIRone] 1 tab PO BID #60 Gabapentin 100 mg PO Q8HR #90 cap Hydroxyzine HCl [hydrOXYzine] 50 mg PO TID #30 levETIRAcetam [Keppra TAB] 500 mg PO BID #60 tablet lisinopriL [Lisinopril] 10 mg PO QDAY #30 FLUoxetine HCL [PROzac] 40 mg PO QDAY #30 cap
[2021-03-04 12:13] VITALS: BP 120/76
[2021-03-04] MEDS ORDERED: HYDROcodone/ACETAMINOPHEN 5-325 MG TAB PO PRN (13:33)
[2021-03-04] MEDS: ACETAMINOPHEN 325 MG TAB PO PRN (13:43)
--- NOTE | 2021-03-04 17:05 | Consultation ---
History of Present Illness - HPI History of present illness: Assessment: 1. Dorsal abrasion great toe ,LEFT foot 2. Bony contusion radial styloid/bone bruise, right wrist 3. New onset seizure Recommendation: 1. Simple dry dressing with Xeroform gauze to be placed on left foot abrasion by nursing staff; 2. Order simple cock up wrist splint for right upper extremity injury (ordered from occupational therapy) DISCUSSION : This is a 45-year-old female who sustained a new onset seizure at her home on 02/28/2021. She was admitted to the hospital on this date and has been undergoing treatment and evaluation by the medical staff. She cannot recall any of the details regarding her injury because of the apparent seizure that she sustained at home. Examination of the wrist shows bony soreness along the radial styloid with an x- ray that shows no obvious fracture but a faint radiolucent area consistent with a bone bruise and not a true fracture in and of itself. Abrasion on the left foot is benign and there are no signs of infection or "exposed tendon". Foot is otherwise unremarkable. Past History Past Medical History: hypertension, other (Panic disorder, alcohol abuse) Medications and Allergies Allergies Allergy/AdvReac Type Severity Reaction Status Date / Time erythromycin base Allergy Unknown Verified 02/25/21 14:01 Iodinated Contrast Media Allergy Unknown Verified 02/25/21 14:01 tetracycline Allergy Unknown Verified 02/25/21 14:01 Home Medications Medication Instructions Recorded Confirmed Last Taken Type Clindamycin [Clindamycin CAP] 300 mg PO TID 7 Days #21 capsule 02/25/21 02/28/21 Unknown Rx Naproxen 375 mg PO BID PRN #14 tablet 02/25/21 02/28/21 02/27/21 Rx hydroCHLOROthiazide 12.5 mg PO TID 02/28/21 02/28/21 02/27/21 History [Hydrochlorothiazide] Buspirone HCl [busPIRone] 1 tab PO BID #60 03/04/21 Unknown Rx FLUoxetine HCL [PROzac] 40 mg PO QDAY #30 cap 03/04/21 Unknown Rx Gabapentin 100 mg PO Q8HR #90 cap 03/04/21 Unknown Rx HYDROcodone/APAP 5-325 [[place] 1 each PO Q6H PRN #15 tablet 03/04/21 Unknown Rx 5-325 mg TAB] Hydroxyzine HCl [hydrOXYzine] 50 mg PO TID #30 03/04/21 Unknown Rx levETIRAcetam [Keppra TAB] 500 mg PO BID #60 tablet 03/04/21 Unknown Rx lisinopriL [Lisinopril] 10 mg PO QDAY #30 03/04/21 Unknown Rx Active Meds: Active Medications Acetaminophen (Acetaminophen 325 Mg Tab) 650 mg PO Q4H PRN PRN Reason: Pain MILD(1-3)/Fever >100.5/DASILVA Last Admin: 03/04/21 13:43 Dose: 650 mg Documented by: Hydrocodone Bitart/Acetaminophen (Hydrocodone/Acetaminophen 5-325 Mg Tab) 1 each PO Q6H PRN PRN Reason: Pain, Moderate (4-6) Albuterol (Albuterol 2.5 Mg/3 Ml Nebu) 2.5 mg IH Q4HRT PRN PRN Reason: Shortness Of Breath Albuterol/Ipratropium (Ipratropium/Albuterol Sulfate 3 Ml Ampul.Neb) 1 ampul IH Q6HRT [facility] Last Admin: 03/04/21 08:30 Dose: 1 ampul Documented by: Buspirone HCl (Buspirone 10 Mg Tab) 10 mg PO TID [facility] Last Admin: 03/04/21 09:41 Dose: 10 mg Documented by: Citalopram Hydrobromide (Citalopram 20 Mg Tab) 20 mg PO QDAY [facility] Last Admin: 03/04/21 09:41 Dose: 20 mg Documented by: Famotidine (Famotidine 20 Mg Tab) 20 mg PO BID [facility] Last Admin: 03/04/21 09:41 Dose: 20 mg Documented by: Gabapentin (Gabapentin 100 Mg Cap) 100 mg PO Q8HR [facility] Last Admin: 03/04/21 05:54 Dose: 100 mg Documented by: Hydroxyzine HCl (Hydroxyzine Hcl 25 Mg Tab) 25 mg PO Q6H PRN PRN Reason: Itching Last Admin: 03/04/21 02:06 Dose: 25 mg Documented by: Ketorolac Tromethamine (Ketorolac 30 Mg/1 Ml Inj) 30 mg IV Q6H PRN PRN Reason: Pain, Moderate (4-6) Stop: 03/06/21 16:59 Last Admin: 10/26/21 09:41 Dose: 30 mg Documented by: Levetiracetam (Levetiracetam 500 Mg Tab) 500 mg PO BID [facility] Last Admin: 03/04/21 09:42 Dose: 500 mg Documented by: Lorazepam (Lorazepam 1 Mg Tab) 1 mg PO BID [facility] Last Admin: 03/04/21 09:41 Dose: 1 mg Documented by: Naproxen (Naproxen 500 Mg Tab) 500 mg PO BID [facility] Last Admin: 03/04/21 09:53 Dose: 500 mg Documented by: Nicotine (Nicotine 21 Mg/24 Hr Patch) 21 mg TD QDAY [facility] Last Admin: 03/04/21 09:41 Dose: 21 mg Documented by: Ondansetron HCl (Ondansetron 4 Mg Odt Tab) 4 mg PO Q8H PRN PRN Reason: Nausea And Vomiting Last Admin: 03/03/21 16:50 Dose: 4 mg Documented by: Sodium Chloride (Sodium Chloride 0.9% 10 Ml Flush Syringe) 10 ml IV BID [facility] Last Admin: 03/04/21 13:45 Dose: 10 ml Documented by: Sodium Chloride (Sodium Chloride 0.9% 10 Ml Flush Syringe) 10 ml IV PRN PRN PRN Reason: LINE FLUSH
== END 2021-03-04 17:19 | disposition home or self-care (01) ==
LOC: ED 00:05 → 3A 03:26 → 4A 11:39
PROVIDERS: ADMIT Hospitalist; ATTEND Hospitalist
DX: R56.9 Unspecified convulsions (principal); S91.312A Laceration without foreign body, left foot, initial encounter; S60.211A Contusion of right wrist, initial encounter; S90.412A Abrasion, left great toe, initial encounter; I10 Essential (primary) hypertension; J44.9 Chronic obstructive pulmonary disease, unspecified; R55 Syncope and collapse; R42 Dizziness and giddiness; F10.129 Alcohol abuse with intoxication, unspecified; F41.0 Panic disorder [episodic paroxysmal anxiety]; F17.210 Nicotine dependence, cigarettes, uncomplicated; F41.9 Anxiety disorder, unspecified; Z79.899 Other long term (current) drug therapy; Z98.890 Other specified postprocedural states; W19.XXXA Unspecified fall, initial encounter; Y92.89 Other specified places as the place of occurrence of the external cause; Y93.89 Activity, other specified; Y99.8 Other external cause status
CPT/HCPCS: 36415; 70450; 70553; 73110; 73200; 73630; 80053; 80307; 81001; 85025; 94640; 95819; 96361; 96365; 96366; 96367; 96375; 96376; 97165; 97760; 97763; 99285; 99406; A9575; G0378; J1170; J1885; J1953; J2060; J2405; J3411; J7030; 80320; 85007; G0480; Q0162

== ENCOUNTER 2021-03-09 11:54 | Emergency (ER) | payer OTHER ==
[2021-03-09] MEDS ORDERED: SODIUM CHLORIDE 0.9% 1000 ML 1,000 ML IV ONE (12:59)
--- NOTE | 2021-03-09 13:07 | Emergency Department Report ---
ED General Adult HPI - General Stated complaint: HYPOTENSION Time Seen by Provider: 03/09/21 12:59 Source: patient, EMS - History of Present Illness Initial comments: Patient is 45 years old female with history of seizure and chronic alcohol abuse. Patient brought to the emergency room via EMS from a local rehab facility for chief complaint of generalized weakness, nausea, vomiting and diarrhea for the last 2 days. Patient denied any fever or chills. She also denied any abdominal pain. Patient denied any chest pain or shortness of breath. Patient was found to be hypertensive with blood pressure of 80/42 by EMS. Patient received 1 L of normal saline prior to coming to the ER with improvement in the blood pressure. - Related Data Home Medications Medication Instructions Recorded Confirmed Last Taken hydroCHLOROthiazide 12.5 mg PO TID 02/28/21 02/28/21 02/27/21 [Hydrochlorothiazide] Previous Rx's Medication Instructions Recorded Last Taken Type Clindamycin [Clindamycin CAP] 300 mg PO TID 7 Days #21 capsule 02/25/21 Unknown Rx Naproxen 375 mg PO BID PRN #14 tablet 02/25/21 02/27/21 Rx Buspirone HCl [busPIRone] 1 tab PO BID #60 03/04/21 Unknown Rx FLUoxetine HCL [PROzac] 40 mg PO QDAY #30 cap 03/04/21 Unknown Rx Gabapentin 100 mg PO Q8HR #90 cap 03/04/21 Unknown Rx HYDROcodone/APAP 5-325 [G[place]inner 1 each PO Q6H PRN #15 tablet 03/04/21 Unknown Rx 5-325 mg TAB] Hydroxyzine HCl [hydrOXYzine] 50 mg PO TID #30 03/04/21 Unknown Rx levETIRAcetam [Keppra TAB] 500 mg PO BID #60 tablet 03/04/21 Unknown Rx lisinopriL [Lisinopril] 10 mg PO QDAY #30 03/04/21 Unknown Rx Allergies Allergy/AdvReac Type Severity Reaction Status Date / Time erythromycin base Allergy Unknown Verified 02/25/21 14:01 Iodinated Contrast Media Allergy Unknown Verified 02/25/21 14:01 tetracycline Allergy Unknown Verified 02/25/21 14:01 ED Review of Systems ROS: Stated complaint: HYPOTENSION Other details as noted in HPI Comment: All other systems reviewed and negative Constitutional: denies: chills, fever Respiratory: denies: cough, shortness of breath, SOB with exertion, SOB at rest Cardiovascular: denies: chest pain, palpitations Gastrointestinal: nausea, vomiting, diarrhea. denies: abdominal pain, constipation, hematemesis, melena, hematochezia Neurological: denies: headache, weakness, numbness, paresthesias, confusion, abnormal gait Psychiatric: anxiety. denies: depression, auditory hallucinations, visual hallucinations, homicidal thoughts, suicidal thoughts ED Past Medical Hx - Past Medical History Hx Hypertension: Yes Hx Congestive Heart Failure: No Hx Diabetes: No Hx Seizures: Yes Hx Psychiatric Treatment: Yes (panic disorder) Hx Asthma: No Hx COPD: Yes Hx HIV: No - Surgical History Hx Cholecystectomy: Yes () - Social History Smoking Status: Current Every Day Smoker - Medications Home Medications: Home Medications Medication Instructions Recorded Confirmed Last Taken Type Clindamycin [Clindamycin CAP] 300 mg PO TID 7 Days #21 capsule 02/25/21 02/28/21 Unknown Rx Naproxen 375 mg PO BID PRN #14 tablet 02/25/21 02/28/21 02/27/21 Rx hydroCHLOROthiazide 12.5 mg PO TID 02/28/21 02/28/21 02/27/21 History [Hydrochlorothiazide] Buspirone HCl [busPIRone] 1 tab PO BID #60 03/04/21 Unknown Rx FLUoxetine HCL [PROzac] 40 mg PO QDAY #30 cap 03/04/21 Unknown Rx Gabapentin 100 mg PO Q8HR #90 cap 03/04/21 Unknown Rx HYDROcodone/APAP 5-325 [[place]inner 1 each PO Q6H PRN #15 tablet 03/04/21 Unknown Rx 5-325 mg TAB] Hydroxyzine HCl [hydrOXYzine] 50 mg PO TID #30 03/04/21 Unknown Rx levETIRAcetam [Keppra TAB] 500 mg PO BID #60 tablet 03/04/21 Unknown Rx lisinopriL [Lisinopril] 10 mg PO QDAY #30 03/04/21 Unknown Rx ED Physical Exam - General General appearance: alert, in no apparent distress - Head Head exam: Present: atraumatic, normocephalic, normal inspection - ENT ENT exam: Present: mucous membranes dry - Neck Neck exam: Present: normal inspection, full ROM. Absent: tenderness, meningismus - Respiratory Respiratory exam: Present: normal lung sounds bilaterally - Cardiovascular Cardiovascular Exam: Present: regular rate, normal rhythm, normal heart sounds - GI/Abdominal GI/Abdominal exam: Present: soft, normal bowel sounds. Absent: distended, tenderness, guarding, rebound, rigid, organomegaly, mass, bruit, pulsatile mass, hernia - Extremities Exam Extremities exam: Present: normal inspection, full ROM, normal capillary refill. Absent: tenderness, pedal edema, joint swelling, calf tenderness - Back Exam Back exam: Present: normal inspection, full ROM. Absent: CVA tenderness (R), CVA tenderness (L) - Neurological Exam Neurological exam: Present: alert, oriented X3, CN II-XII intact, normal gait. Absent: motor sensory deficit - Psychiatric Psychiatric exam: Present: normal mood. Absent: homicidal ideation, suicidal ideation - Skin Skin exam: Present: warm, intact, normal color ED Course Vital Signs 03/09/21 03/09/21 13:59 14:59 Temperature 98 F Pulse Rate 96 H 94 H Respiratory 16 16 Rate Blood Pressure 94/49 98/54 [Right] O2 Sat by Pulse 100 98 Oximetry ED Medical Decision Making - Lab Data Result diagrams: 03/09/21 13:37 03/09/21 13:37 - Medical Decision Making Patient is 45 years old female with history of seizure and chronic alcohol abuse. Patient brought to the emergency room via EMS from a local rehab facility for chief complaint of generalized weakness, nausea, vomiting and diarrhea for the last 2 days. Patient denied any fever or chills. She also denied any abdominal pain. Patient denied any chest pain or shortness of breath. Patient was found to be hypertensive with blood pressure of 80/42 by EMS. Patient received 1 L of normal saline prior to coming to the ER with improvement in the blood pressure. Patient remained stable in the ER. Patient received normal saline. Blood pressure improved. Patient is asking for anxiety medicine. Critical care attestation.: If time is entered above; I have spent that time in minutes in the direct care of this critically ill patient, excluding procedure time. ED Disposition Clinical Impression: Generalized weakness, Acute nausea with nonbilious vomiting, Diarrhea, Acute hypotension Disposition: 01 HOME / SELF CARE / HOMELESS Is pt being admited?: No Condition: Stable Instructions: Hypotension, [id number], Nausea and Vomiting, Adult Referrals: PRIMARY CARE, [Primary Care Provider] - 3-5 Days
[2021-03-09 14:12] LABS: Basophils # (Auto) 0.1 K/mm3 (0.0-0.1); Basophils % (Auto) 0.5 % (0.0-1.8); Eosinophils # (Auto) 0.1 K/mm3 (0.0-0.4); Eosinophils % (Auto) 1.5 % (0.0-4.3); Hematocrit 32.7 % (30.3-42.9); Hemoglobin 10.8 gm/dl (10.1-14.3); Lymphocytes # (Auto) 1.3 K/mm3 (1.2-5.4); Lymphocytes % (Auto) 13.9 % (13.4-35.0); Mean Corpuscular HGB Conc 33 % (30-34); Mean Corpuscular Volume 90 fl (79-97); Monocytes # (Auto) 0.5 K/mm3 (0.0-0.8); Monocytes % (Auto) 5.6 % (0.0-7.3); Platelet Count 313 K/mm3 (140-440); Red Blood Count 3.65 M/mm3 (3.65-5.03); Red Cell Distribution Width 16.1 % (13.2-15.2)
[2021-03-09 14:18] LABS: INR 0.9 (0.87-1.13)
[2021-03-09 14:20] LABS: Alanine Aminotransferase 12 units/L (7-56); Albumin 3.8 g/dL (3.9-5); BUN/Creatinine Ratio 14; Bilirubin,Direct < 0.2 mg/dL (0-0.2); Blood Urea Nitrogen 18 mg/dL (7-17); Calcium 8.8 mg/dL (8.4-10.2); Hemolysis Index 6; Partial Thromboplastin Time 26.3 Sec. (24.2-36.6)
[2021-03-09] MEDS ORDERED: LORazepam 2 MG/ML VIAL IV ONE (14:58)
[2021-03-09 15:01] VITALS: BP 98/54
== END 2021-03-09 17:00 | disposition home or self-care (01) ==
LOC: ED 11:54
DX: I95.9 Hypotension, unspecified (principal); R11.2 Nausea with vomiting, unspecified; R19.7 Diarrhea, unspecified; R53.1 Weakness; I10 Essential (primary) hypertension; J44.9 Chronic obstructive pulmonary disease, unspecified; R79.1 Abnormal coagulation profile; F17.200 Nicotine dependence, unspecified, uncomplicated; Z88.1 Allergy status to other antibiotic agents; Z91.041 Radiographic dye allergy status; Z79.899 Other long term (current) drug therapy
CPT/HCPCS: 36415; 80048; 80076; 83690; 83735; 84703; 85025; 85610; 85730; 96361; 96374; 99284; J2060; J7030